=== PATIENT | female | born 1980 | race Caucasian/White ===

== ENCOUNTER 2019-05-14 15:23 | Emergency (ER) | payer BC, OTHER, SELFPAY ==
[2019-05-14 15:27] VITALS: BP 133/97; PULSE 80; RESP 14; TEMP 36.3; O2SAT 99; BMI 25.6
[2019-05-14 15:57] LABS: Add Manual Diff / Slide Review NO; Basophils Absolute Auto 0 /uL (0-100); Basophils Percent Auto 0.7 % (0-2); Eosinophils Absolute Auto 100 /uL (0-450); Eosinophils Percent Auto 1.1 % (2-4); Hematocrit 43.4 % (36-46); Hemoglobin 14.6 g/dL (12.0-16.0); Lymphocytes Absolute Auto 1600 /uL (1100-4500); Lymphocytes Percent Auto 24.7 % (25-40); Mean Corpuscular HGB Conc 33.7 % (30-36); Mean Corpuscular Hemoglobin 30.4 PG (26-34); Mean Corpuscular Volume 90.1 fL (80-100); Monocytes Absolute Auto 400 /uL (0-900); Monocytes Percent Auto 5.8 % (3-14); Neutrophils Absolute Auto 4400 /uL (1500-7000); Neutrophils Percent Auto 67.7 % (50-75); Platelet Count 256 X10^3/uL (150-400); Red Blood Cell Count 4.82 X10^6/uL (4.0-5.2); Red Cell Distribution Width 12.7 % (11.6-14.8); White Blood Cell Count 6.5 X10^3/uL (4.5-11.0)
[2019-05-14 16:04] LABS: Prothrombin Time 11.4 SECONDS (10.1-12.7)
[2019-05-14 16:06] LABS: PTT Partial Thromboplastin Tim 32 SECONDS (26.4-36.2)
[2019-05-14 16:11] LABS: Alanine Aminotransferase 38 IU/L (9-52); Albumin 4.7 g/dL (3.5-5.0); Albumin Globulin Ratio 1.7 (1.0-2.8); Alkaline Phosphatase 76 U/L (38-126); Aspartate Aminotransferase 22 IU/L (14-36); BUN Creatinine Ratio 17.1 (6-22); Bilirubin Total 0.4 mg/dL (0.2-1.3); Blood Urea Nitrogen 12 mg/dL (7-17); Calcium 9.6 mg/dL (8.4-10.2); Carbon Dioxide 26 mmol/L (22-32); Chloride 102 mmol/L (98-107); Estimated Glomerular Filt Rate > 60.0 mL/min (>60); Globulin 2.7 g/dL (1.7-4.1); Glucose 88 mg/dL (70-100); HEMOLYSIS < 15 (0-50); Lipase 81 U/L (23-300); Potassium 3.6 mmol/L (3.4-5.1); Sodium 137 mmol/L (137-145); Total Protein 7.4 g/dL (6.3-8.2)
--- NOTE | 2019-05-14 17:50 | DI.CT.S_ITS ---
PROCEDURE: CT ABDOMEN PELVIS W CON INDICATIONS: ABDOMINAL PAIN, RIGHT LOWER QUADRANT PAIN SINCE LAST TUES. TECHNIQUE: After the administration of intravenous contrast, 5 mm thick sections acquired from the diaphragm to the symphysis. 5 mm coronal and sagittal reformats were acquired. For radiation dose reduction, the following was used: automated exposure control, adjustment of mA and/or kV according to patient size. COMPARISON: None. FINDINGS: Image quality: Excellent. ABDOMEN: Lung bases: Lung bases are clear. Heart size is normal. Solid organs: Liver is normal in size and enhancement. Gallbladder is unremarkable. Biliary system is non dilated. Pancreas enhances normally. Spleen is normal in size and enhancement. Multiple small splenules are noted inferior to the spleen. No adrenal nodules. No hydronephrosis. Multiple sub-centimeters echogenic foci within the kidneys bilaterally are too small to characterize on this exam, but likely represent renal cysts. Peritoneum and bowel: Bowel loops demonstrate normal wall thickness and caliber. No free fluid or air. Normal appendix seen on axial image 59 of series 2. No right lower quadrant inflammatory findings are identified. Nodes and vessels: No retroperitoneal or mesenteric adenopathy by size criteria. Aorta and inferior vena cava are normal in size. Miscellaneous: Small fat-containing umbilical hernia noted. PELVIS: Genitourinary: Bladder wall thickness is normal. Miscellaneous: Uterus is present. There is a 3.0 cm right adnexal cyst. Bones: No suspicious bony lesions. No vertebral body compression fractures. IMPRESSION: 1. Normal appendix identified. No CT evidence of acute appendicitis. 2. 3.0 cm simple-attenuation right adnexal cyst. Dictated by: Atif Owens M.D. on 05/14/2019 at 20:04 Approved by: Atif Owens M.D. on 05/14/2019 at 20:11
--- NOTE | 2019-05-14 18:06 | DI.US.S_ITS ---
PROCEDURE: US PELVIC LIMITED INDICATIONS: RLQ Pain TECHNIQUE: Real-time transabdominal scanning was performed of the pelvic organs, with image documentation. COMPARISON: None. FINDINGS: Uterus: Uterus measures 6.9 x 2.9 cm. Multiple nabothian cysts are identified. Endometrial thickness measures 0.7 cm. There are punctate calcifications at the endometrial and uterine junction. Ovaries: Right ovary measures 4.9 x 4.0 x 3.8 cm. There is a 3.4 x 3.4 x 3.4 cm hypoechoic complex cyst with internal echogenic focus in the right ovary. Left ovary measures 3.6 x 2.2 x 2.3 cm Other: No free pelvic fluid. Limited scanning through the kidneys shows no hydronephrosis. The appendix cannot be identified by ultrasound this exam. Appendicitis cannot be excluded by this exam. IMPRESSION: 1. 3.4 cm complex cyst within the right ovary (possibly hemorrhagic), with right ovarian enlargement to a maximal diameter of 4.9 cm. Large cysts can predispose the ovary to ovarian torsion. Clinical correlation recommended. Consider followup pelvic ultrasound if there is continued clinical concern. 2. The appendix cannot be identified by this ultrasound exam; appendicitis cannot be excluded by this exam. Findings discussed with referring provider BRITTANY Graham by telephone by Dr. Owens at 7:20 PM on 05/14/2019. Dictated by: Atif Owens M.D. on 05/14/2019 at 19:16 Approved by: Atif Owens M.D. on 05/14/2019 at 19:25
[2019-05-14] MEDS: ONDANSETRON 4 MG/2 ML INJ IV (19:08)
[2019-05-14] MEDS: SODIUM CHLORIDE 0.9% 1,000 ML 1000 ML IV (19:08)
[2019-05-14 19:14] VITALS: BP 127/83; PULSE 80; RESP 18; TEMP 36.7; O2SAT 97
[2019-05-14] MEDS: MORPHINE 2 MG/ML INJ IV (20:31)
--- NOTE | 2019-05-14 20:44 | ED.ABDPAIN ---
HPI - Abdominal Pain <BRITTANY Menchaca-BC - Last Filed: 05/14/19 22:05> General Chief Complaint: Abdominal Pain Stated Complaint: abdominal pain Time Seen by Provider: 05/14/19 17:43 Source: patient Mode of arrival: ambulatory Limitations: no limitations History of Present Illness HPI narrative: The patient is a 38-year-old female not smoker with history of PCOS who presents with a chief complaint of right lower quadrant pain. She states has been going on for the past several days, has gotten worse. She denies any overt fevers, but complains of chills. She states the pain is worse with bowel movement and urination. She denies nausea vomiting or diarrhea. She has not taken anything at home to feel better. She does endorse a history of diverticulitis, but this does not feel like that. She states she has tried some naturopathic medications, without relief. She states she has no problem eating and drinking. She denies any dysuria urgency or frequency. She states that she has had her left to remove due to an ectopic . She denies any possibility of at this point time. She denies any dysuria urgency or frequency. Related Data Home Medications Medication Instructions Recorded Confirmed lamotrigine 200 mg PO DAILY 05/14/19 05/14/19 lurasidone [Latuda] 80 mg PO BEDTIME 05/14/19 Previous Rx's Medication Instructions Recorded hydrocodone-acetaminophen [[place]] 1 tab PO Q4-6H PRN #10 tab 05/14/19 ondansetron 4 mg PO Q6H PRN #20 tab 05/14/19 Allergies Allergy/AdvReac Type Severity Reaction Status Date / Time narcotic Allergy Uncoded 05/14/19 15:27 Review of Systems <COOPER MenchacaBC - Last Filed: 05/14/19 22:05> Review of Systems GENERAL: Denies chills, fatigue, malaise, fever, sweats. HEENT: Denies sinus pain, ear pain, sore throat, difficulty swallowing, dizziness. RESPIRATORY: Denies dyspnea, cough, wheezing, hemoptysis, sputum. CARDIOVASCULAR: Denies chest pain, palpitations, orthopnea, edema, GASTROINTESTINAL: See HPI : See HPI MUSCULOSKELETAL: denies weakness, joint pain, or bony pain SKIN: Denies rash, skin lesions, or other NEUROLOGIC: Denies weakness, headache, numbness, change in speech, confusion, seizures, incoordination. PSYCHIATRIC: No concerning psychosocial issues. 12 point review of systems is negative except for those stated above PFSH <PANDA Menchaca - Last Filed: 05/14/19 22:05> Medical History (Updated 05/14/19 @ 21:40 by PANDA Menchaca) History of ectopic (Acute) PCOS (polycystic ovarian syndrome) (Acute) Surgical History (Updated 05/14/19 @ 20:46 by PANDA Menchaca) History of gynecologic surgery (Acute) Social History Smoking Status: Unknown if ever smoked Social History Smoking Status: Unknown if ever smoked Exam <PANDA Menchaca - Last Filed: 05/14/19 22:05> Narrative Exam Narrative: GENERAL: This is a well-nourished, well-developed patient, no acute distress HEAD: Atraumatic. Normocephalic. No temporal or scalp tenderness. EYES: Pupils equal round and reactive. Extraocular motions intact. No scleral icterus. No injection or drainage. ENT: Nose without bleeding, purulent drainage or septal hematoma. Throat without erythema, tonsillar hypertrophy or exudate. Uvula midline. Airway patent. NECK: Trachea midline. No JVD or lymphadenopathy. Supple, nontender, no meningeal signs. CARDIOVASCULAR: Regular rate and rhythm without murmurs, gallops, or rubs. RESPIRATORY: Clear to auscultation. Breath sounds equal bilaterally. No wheezes, rales, or rhonchi. No cough. No increased respiratory effort. No accessory muscle use. GASTROINTESTINAL: Abdomen soft, nondistended. No hepato-splenomegaly, or palpable masses. No guarding. Tenderness to palpation right lower quadrant but no guarding. EXTREMITIES: No clubbing, cyanosis, or edema. No joint tenderness, effusion, or edema noted. BACK: Nontender without deformity or crepitance. No flank tenderness. NEURO: AOx3. SKIN: No rash or erythema. Initial Vital Signs Initial Vital Signs: Vital Signs Temperature 97.4 F L 05/14/19 15:27 Pulse Rate 80 05/14/19 15:27 Respiratory Rate 14 05/14/19 15:27 Blood Pressure 133/97 H 05/14/19 15:27 Pulse Oximetry 99 05/14/19 15:27 <Mk Veras MD - Last Filed: 05/15/19 06:26> Initial Vital Signs Initial Vital Signs: Vital Signs Temperature 97.4 F L 05/14/19 15:27 Pulse Rate 80 05/14/19 15:27 Respiratory Rate 14 05/14/19 15:27 Blood Pressure 133/97 H 05/14/19 15:27 Pulse Oximetry 99 05/14/19 15:27 Course <BRITTANY Menchaca- - Last Filed: 05/14/19 22:05> Course Narrative: I discussed at length with the patient the possibility of ovarian torsion, explained that it would place fertility at risk. She declined a pelvic exam. Agreed to allow me to speak with OBGYN. Orders Ordered: Discontinued Medications Hydrocodone Bitart/Acetaminophen (Vicodin Prepack) 1 bottle MISC SEEINSTR ONE Stop: 05/14/19 21:38 Last Admin: 05/14/19 21:38 Dose: 1 bottle Sodium Chloride (Normal Saline 0.9%) 1,000 mls @ 1,000 mls/hr IV BOLUS ONE Stop: 05/14/19 19:36 Last Infusion: 05/14/19 21:22 Dose: 0 mls/hr Admin: 05/14/19 19:08 Dose: 1,000 mls/hr Morphine Sulfate (Morphine) 2 mg IV NOW ONE Stop: 05/14/19 18:38 Last Admin: 05/14/19 20:31 Dose: 2 mg Ondansetron HCl (Zofran) 4 mg IV NOW ONE Stop: 05/14/19 18:38 Last Admin: 05/14/19 19:08 Dose: 4 mg Ondansetron HCl (Zofran Odt Prepack) 1 bottle MISC SEEINSTR ONE Stop: 05/14/19 21:38 Last Admin: 05/14/19 21:39 Dose: 1 bottle Vital Signs - 8 hr 05/14/19 15:27 05/14/19 19:14 05/14/19 21:29 Temperature 97.4 F L 98.1 F Pulse Rate 80 80 80 Respiratory Rate 14 18 18 Blood Pressure 133/97 H Blood Pressure [Right Arm] 127/83 132/95 H Pulse Oximetry 99 97 98 <Mk Veras MD - Last Filed: 05/15/19 06:26> Orders Ordered: Discontinued Medications Hydrocodone Bitart/Acetaminophen (Vicodin Prepack) 1 bottle MISC SEEINSTR ONE Stop: 05/14/19 21:38 Last Admin: 05/14/19 21:38 Dose: 1 bottle Sodium Chloride (Normal Saline 0.9%) 1,000 mls @ 1,000 mls/hr IV BOLUS ONE Stop: 05/14/19 19:36 Last Infusion: 05/14/19 21:22 Dose: 0 mls/hr Admin: 05/14/19 19:08 Dose: 1,000 mls/hr Morphine Sulfate (Morphine) 2 mg IV NOW ONE Stop: 05/14/19 18:38 Last Admin: 05/14/19 20:31 Dose: 2 mg Ondansetron HCl (Zofran) 4 mg IV NOW ONE Stop: 05/14/19 18:38 Last Admin: 05/14/19 19:08 Dose: 4 mg Ondansetron HCl (Zofran Odt Prepack) 1 bottle MISC SEEINSTR ONE Stop: 05/14/19 21:38 Last Admin: 05/14/19 21:39 Dose: 1 bottle Vital Signs - 8 hr 05/14/19 15:27 05/14/19 19:14 05/14/19 21:29 Temperature 97.4 F L 98.1 F Pulse Rate 80 80 80 Respiratory Rate 14 18 18 Blood Pressure 133/97 H Blood Pressure [Right Arm] 127/83 132/95 H Pulse Oximetry 99 97 98 MDM - Abdominal Pain <PANDA Menchaca - Last Filed: 05/14/19 22:05> Lab Data Result diagrams: 05/14/19 15:45 05/14/19 15:45 Lab Results 05/14/19 05/14/19 05/14/19 Range/Units 15:45 15:45 15:45 WBC 6.5 (4.5-11.0) X10^3/uL RBC 4.82 (4.0-5.2) X10^6/uL Hgb 14.6 (12.0-16.0) g/dL Hct 43.4 (36-46) % MCV 90.1 (80-100) fL MCH 30.4 (26-34) PG MCHC 33.7 (30-36) % RDW 12.7 (11.6-14.8) % Plt Count 256 (150-400) X10^3/uL Neut % (Auto) 67.7 (50-75) % Lymph % (Auto) 24.7 L (25-40) % [place] % (Auto) 5.8 (3-14) % Eos % (Auto) 1.1 L (2-4) % Baso % (Auto) 0.7 (0-2) % Neut # (Auto) 4400 (9387-0829) /uL Lymph # (Auto) 1600 (7623-2021) /uL [place] # (Auto) 400 (0-900) /uL Eos # (Auto) 100 (0-450) /uL Baso # (Auto) 0 (0-100) /uL PT 11.4 (10.1-12.7) SECONDS INR 1.0 (0.9-1.3) APTT 32 (26.4-36.2) SECONDS Sodium 137 (137-145) mmol/L Potassium 3.6 (3.4-5.1) mmol/L Chloride 102 (98-107) mmol/L Carbon Dioxide 26 (22-32) mmol/L BUN 12 (7-17) mg/dL Creatinine 0.70 (0.52-1.04) mg/dL Estimated GFR > 60.0 (>60) mL/min BUN/Creatinine Ratio 17.1 (6-22) Glucose 88 (70-100) mg/dL Calcium 9.6 (8.4-10.2) mg/dL Total Bilirubin 0.4 (0.2-1.3) mg/dL AST 22 (14-36) IU/L ALT 38 (9-52) IU/L Alkaline Phosphatase 76 (38-126) U/L Total Protein 7.4 (6.3-8.2) g/dL Albumin 4.7 (3.5-5.0) g/dL Globulin 2.7 (1.7-4.1) g/dL Albumin/Globulin Ratio 1.7 (1.0-2.8) Lipase 81 (23-300) U/L Point of care testing: Point of Care Testing Test Results Negative Urine Dip Bedside Urine Glucose Negative Bedside Urine Bilirubin - Negative Bedside Urine Ketone - Negative Urine Specific Grahn 1.015 Bedside Urine Occult Blood - Negative Bedside Urine pH 7.0 Bedside Urine Protein - Negative Bedside Urine Urobilinogen - Negative Bedside Urine Nitrite - Negative Bedside Urine Leukocytes +/- 15 Esterase Imaging Data Pelvic ultrasound: Radiologist's impression: [address] [address] Ultrasound Report Signed Patient: Sanjuanita Pierre#: [id number] : 1980Acct:[id number] Age/Sex: 38 / FDate of Service: 05/14/19 Loc: ED Accession Number: [id number] Procedure: US pelvic limited Ordering Provider: Megan Graham- PROCEDURE: US PELVIC LIMITED INDICATIONS: RLQ Pain TECHNIQUE: Real-time transabdominal scanning was performed of the pelvic organs, with image documentation. COMPARISON: None. FINDINGS: Uterus: Uterus measures 6.9 x 2.9 cm. Multiple nabothian cysts are identified. Endometrial thickness measures 0.7 cm. There are punctate calcifications at the endometrial and uterine junction. Ovaries: Right ovary measures 4.9 x 4.0 x 3.8 cm. There is a 3.4 x 3.4 x 3.4 cm hypoechoic complex cyst with internal echogenic focus in the right ovary. Left ovary measures 3.6 x 2.2 x 2.3 cm Other: No free pelvic fluid. Limited scanning through the kidneys shows no hydronephrosis. The appendix cannot be identified by ultrasound this exam. Appendicitis cannot be excluded by this exam. IMPRESSION: 1. 3.4 cm complex cyst within the right ovary (possibly hemorrhagic), with right ovarian enlargement to a maximal diameter of 4.9 cm. Large cysts can predispose the ovary to ovarian torsion. Clinical correlation recommended. Consider followup pelvic ultrasound if there is continued clinical concern. 2. The appendix cannot be identified by this ultrasound exam; appendicitis cannot be excluded by this exam. Findings discussed with referring provider BRITTANY Graham by telephone by Dr. Owens at 7:20 PM on 05/14/2019. Dictated by: Atif Owens M.D. on 05/14/2019 at 19:16 Approved by: Atif Owens M.D. on 05/14/2019 at 19:25 CT scan - abdomen: Radiologist's impression: Estrella Pierre 38 F [address] [address] [address] Scan Report Signed Patient: Sanjuanita Pierre#: [id number] : 1980Acct:[id number] Age/Sex: 38 / FDate of Service: 05/14/19 Loc: Accession Number: [id number] Procedure: CT abdomen pelvis w con Ordering Provider: Megan Graham [facility]- PROCEDURE: CT ABDOMEN PELVIS W CON INDICATIONS: ABDOMINAL PAIN, RIGHT LOWER QUADRANT PAIN SINCE LAST TU. TECHNIQUE: After the administration of intravenous contrast, 5 mm thick sections acquired from the diaphragm to the symphysis. 5 mm coronal and sagittal reformats were acquired. For radiation dose reduction, the following was used: automated exposure control, adjustment of mA and/or kV according to patient size. COMPARISON: None. FINDINGS: Image quality: Excellent. ABDOMEN: Lung bases: Lung bases are clear. Heart size is normal. Solid organs: Liver is normal in size and enhancement. Gallbladder is unremarkable. Biliary system is non dilated. Pancreas enhances normally. Spleen is normal in size and enhancement. Multiple small splenules are noted inferior to the spleen. No adrenal nodules. No hydronephrosis. Multiple sub-centimeters echogenic foci within the kidneys bilaterally are too small to characterize on this exam, but likely represent renal cysts. Peritoneum and bowel: Bowel loops demonstrate normal wall thickness and caliber. No free fluid or air. Normal appendix seen on axial image 59 of series 2. No right lower quadrant inflammatory findings are identified. Nodes and vessels: No retroperitoneal or mesenteric adenopathy by size criteria. Aorta and inferior vena cava are normal in size. Miscellaneous: Small fat-containing umbilical hernia noted. PELVIS: Genitourinary: Bladder wall thickness is normal. Miscellaneous: Uterus is present. There is a 3.0 cm right adnexal cyst. Bones: No suspicious bony lesions. No vertebral body compression fractures. IMPRESSION: 1. Normal appendix identified. No CT evidence of acute appendicitis. 2. 3.0 cm simple-attenuation right adnexal cyst. Dictated by: Atif Owens M.D. on 05/14/2019 at 20:04 Approved by: Atif Owens M.D. on 05/14/2019 at 20:11 [facility] Narrative Medical decision making narrative: The patient is a 38-year-old female who presents with right lower quadrant pain. She does not have an elevated white blood cell count which is reassuring. She has negative in clean urine. However given the radiologist for concern about inability to rule out ovarian torsion, I spoke with Dr. Villela who states that the appearance is of a hemorrhagic cyst. The patient declined a pelvic exam in the ER. I discussed at length pain control, as well as PCP follow-up. Discussed that the patient should come back to the emergency department for any acute concerns such as inability keep down fluids. Patient again declined pelvic exam. States understanding of return precautions as well as follow-up. Patient was given prescription for [place] as well as Zofran. No questions or concerns upon discharge. <Mk Veras MD - Last Filed: 05/15/19 06:26> Lab Data Lab Results 05/14/19 05/14/19 05/14/19 Range/Units 15:45 15:45 15:45 WBC 6.5 (4.5-11.0) X10^3/uL RBC 4.82 (4.0-5.2) X10^6/uL Hgb 14.6 (12.0-16.0) g/dL Hct 43.4 (36-46) % MCV 90.1 (80-100) fL MCH 30.4 (26-34) PG MCHC 33.7 (30-36) % RDW 12.7 (11.6-14.8) % Plt Count 256 (150-400) X10^3/uL Neut % (Auto) 67.7 (50-75) % Lymph % (Auto) 24.7 L (25-40) % [place] % (Auto) 5.8 (3-14) % Eos % (Auto) 1.1 L (2-4) % Baso % (Auto) 0.7 (0-2) % Neut # (Auto) 4400 (6010-3725) /uL Lymph # (Auto) 1600 (3393-7784) /uL [place] # (Auto) 400 (0-900) /uL Eos # (Auto) 100 (0-450) /uL Baso # (Auto) 0 (0-100) /uL PT 11.4 (10.1-12.7) SECONDS INR 1.0 (0.9-1.3) APTT 32 (26.4-36.2) SECONDS Sodium 137 (137-145) mmol/L Potassium 3.6 (3.4-5.1) mmol/L Chloride 102 (98-107) mmol/L Carbon Dioxide 26 (22-32) mmol/L BUN 12 (7-17) mg/dL Creatinine 0.70 (0.52-1.04) mg/dL Estimated GFR > 60.0 (>60) mL/min BUN/Creatinine Ratio 17.1 (6-22) Glucose 88 (70-100) mg/dL Calcium 9.6 (8.4-10.2) mg/dL Total Bilirubin 0.4 (0.2-1.3) mg/dL AST 22 (14-36) IU/L ALT 38 (9-52) IU/L Alkaline Phosphatase 76 (38-126) U/L Total Protein 7.4 (6.3-8.2) g/dL Albumin 4.7 (3.5-5.0) g/dL Globulin 2.7 (1.7-4.1) g/dL Albumin/Globulin Ratio 1.7 (1.0-2.8) Lipase 81 (23-300) U/L Point of care testing: Point of Care Testing Test Results Negative Urine Dip Bedside Urine Glucose Negative Bedside Urine Bilirubin - Negative Bedside Urine Ketone - Negative Urine Specific Grahn 1.015 Bedside Urine Occult Blood - Negative Bedside Urine pH 7.0 Bedside Urine Protein - Negative Bedside Urine Urobilinogen - Negative Bedside Urine Nitrite - Negative Bedside Urine Leukocytes +/- 15 Esterase Discharge Plan Departure Patient Disposition: Home Clinical Impression: Ovarian cyst Qualifiers: Laterality: right Qualified Code(s): N83.201 - Unspecified ovarian cyst, right side Discharge Date/Time: 05/14/19 21:44 Interventions: ED Discharge Assessment Last Done: 05/14/19 21:44 Instructions: DI for Ovarian Cyst Activity Restrictions/Additional Instructions: Your imaging reveals an ovarian cyst. Please follow up with your primary care provider. Please be aware that a large ovary can predispose you for torsion, so monitor for worsening of pain. Please come back to the ER for any acute concerns. I have given the contact information for [facility] health resources. You can also follow up with an OBGYN of her choosing. Today I spoke with Dr. Villela about you Prescriptions: New hydrocodone-acetaminophen [[place]] 5-325 mg tablet 1 tab PO Q4-6H PRN (Reason: pain) Qty: 10 RF: 0 ondansetron 4 mg tablet,disintegrating 4 mg PO Q6H PRN (Reason: nausea and vomiting) Qty: 20 RF: 0 No Action lamotrigine 200 mg tablet 200 mg PO DAILY RF: 0 Latuda 40 mg tablet 80 mg PO BEDTIME RF: 0 Referrals: [facility] [Outside] Shagufta Villela MD [Physician] - <Mk Veras MD - Last Filed: 05/15/19 06:26> Cosign ED Attending Solature Attestation: I was present in the ER at the time this patient's care. I was available for consultation or to see the patient directly if needed. I agree with evaluation, the assessment and treatment plan.
--- NOTE | 2019-05-14 20:48 | ED_ITS ---
HPI - Abdominal Pain <BRITTANY Menchaca-BC - Last Filed: 05/14/19 22:05> General Chief Complaint: Abdominal Pain Stated Complaint: abdominal pain Time Seen by Provider: 05/14/19 17:43 Source: patient Mode of arrival: ambulatory Limitations: no limitations History of Present Illness HPI narrative: The patient is a 38-year-old female not smoker with history of PCOS who presents with a chief complaint of right lower quadrant pain. She states has been going on for the past several days, has gotten worse. She denies any overt fevers, but complains of chills. She states the pain is worse with bowel movement and urination. She denies nausea vomiting or diarrhea. She has not taken anything at home to feel better. She does endorse a history of diverticulitis, but this does not feel like that. She states she has tried some naturopathic medications, without relief. She states she has no problem eating and drinking. She denies any dysuria urgency or frequency. She states that she has had her left to remove due to an ectopic . She denies any possibility of at this point time. She denies any dysuria urgency or frequency. Related Data Home Medications Medication Instructions Recorded Confirmed lamotrigine 200 mg PO DAILY 05/14/19 05/14/19 lurasidone [Latuda] 80 mg PO BEDTIME 05/14/19 Previous Rx's Medication Instructions Recorded hydrocodone-acetaminophen [Evans] 1 tab PO Q4-6H PRN #10 tab 05/14/19 ondansetron 4 mg PO Q6H PRN #20 tab 05/14/19 Allergies Allergy/AdvReac Type Severity Reaction Status Date / Time narcotic Allergy Uncoded 05/14/19 15:27 Review of Systems <COOPER MenchacaBC - Last Filed: 05/14/19 22:05> Review of Systems GENERAL: Denies chills, fatigue, malaise, fever, sweats. HEENT: Denies sinus pain, ear pain, sore throat, difficulty swallowing, dizziness. RESPIRATORY: Denies dyspnea, cough, wheezing, hemoptysis, sputum. CARDIOVASCULAR: Denies chest pain, palpitations, orthopnea, edema, GASTROINTESTINAL: See HPI : See HPI MUSCULOSKELETAL: denies weakness, joint pain, or bony pain SKIN: Denies rash, skin lesions, or other NEUROLOGIC: Denies weakness, headache, numbness, change in speech, confusion, seizures, incoordination. PSYCHIATRIC: No concerning psychosocial issues. 12 point review of systems is negative except for those stated above PFSH <PANDA Menchaca - Last Filed: 05/14/19 22:05> Medical History (Updated 05/14/19 @ 21:40 by PANDA Menchaca) History of ectopic (Acute) PCOS (polycystic ovarian syndrome) (Acute) Surgical History (Updated 05/14/19 @ 20:46 by PANDA Menchaca) History of gynecologic surgery (Acute) Social History Smoking Status: Unknown if ever smoked Social History Smoking Status: Unknown if ever smoked Exam <PANDA Menchaca - Last Filed: 05/14/19 22:05> Narrative Exam Narrative: GENERAL: This is a well-nourished, well-developed patient, no acute distress HEAD: Atraumatic. Normocephalic. No temporal or scalp tenderness. EYES: Pupils equal round and reactive. Extraocular motions intact. No scleral icterus. No injection or drainage. ENT: Nose without bleeding, purulent drainage or septal hematoma. Throat without erythema, tonsillar hypertrophy or exudate. Uvula midline. Airway patent. NECK: Trachea midline. No JVD or lymphadenopathy. Supple, nontender, no meningeal signs. CARDIOVASCULAR: Regular rate and rhythm without murmurs, gallops, or rubs. RESPIRATORY: Clear to auscultation. Breath sounds equal bilaterally. No wheezes, rales, or rhonchi. No cough. No increased respiratory effort. No accessory muscle use. GASTROINTESTINAL: Abdomen soft, nondistended. No hepato-splenomegaly, or palpable masses. No guarding. Tenderness to palpation right lower quadrant but no guarding. EXTREMITIES: No clubbing, cyanosis, or edema. No joint tenderness, effusion, or edema noted. BACK: Nontender without deformity or crepitance. No flank tenderness. NEURO: AOx3. SKIN: No rash or erythema. Initial Vital Signs Initial Vital Signs: Vital Signs Temperature 97.4 F L 05/14/19 15:27 Pulse Rate 80 05/14/19 15:27 Respiratory Rate 14 05/14/19 15:27 Blood Pressure 133/97 H 05/14/19 15:27 Pulse Oximetry 99 05/14/19 15:27 <Mk Veras MD - Last Filed: 05/15/19 06:26> Initial Vital Signs Initial Vital Signs: Vital Signs Temperature 97.4 F L 05/14/19 15:27 Pulse Rate 80 05/14/19 15:27 Respiratory Rate 14 05/14/19 15:27 Blood Pressure 133/97 H 05/14/19 15:27 Pulse Oximetry 99 05/14/19 15:27 Course <BRITTANY Menchaca- - Last Filed: 05/14/19 22:05> Course Narrative: I discussed at length with the patient the possibility of ovarian torsion, explained that it would place fertility at risk. She declined a pelvic exam. Agreed to allow me to speak with OBGYN. Orders Ordered: Discontinued Medications Hydrocodone Bitart/Acetaminophen (Vicodin Prepack) 1 bottle MISC SEEINSTR ONE Stop: 05/14/19 21:38 Last Admin: 05/14/19 21:38 Dose: 1 bottle Sodium Chloride (Normal Saline 0.9%) 1,000 mls @ 1,000 mls/hr IV BOLUS ONE Stop: 05/14/19 19:36 Last Infusion: 05/14/19 21:22 Dose: 0 mls/hr Admin: 05/14/19 19:08 Dose: 1,000 mls/hr Morphine Sulfate (Morphine) 2 mg IV NOW ONE Stop: 05/14/19 18:38 Last Admin: 05/14/19 20:31 Dose: 2 mg Ondansetron HCl (Zofran) 4 mg IV NOW ONE Stop: 05/14/19 18:38 Last Admin: 05/14/19 19:08 Dose: 4 mg Ondansetron HCl (Zofran Odt Prepack) 1 bottle MISC SEEINSTR ONE Stop: 05/14/19 21:38 Last Admin: 05/14/19 21:39 Dose: 1 bottle Vital Signs - 8 hr 05/14/19 15:27 05/14/19 19:14 05/14/19 21:29 Temperature 97.4 F L 98.1 F Pulse Rate 80 80 80 Respiratory Rate 14 18 18 Blood Pressure 133/97 H Blood Pressure [Right Arm] 127/83 132/95 H Pulse Oximetry 99 97 98 <Mk Veras MD - Last Filed: 05/15/19 06:26> Orders Ordered: Discontinued Medications Hydrocodone Bitart/Acetaminophen (Vicodin Prepack) 1 bottle MISC SEEINSTR ONE Stop: 05/14/19 21:38 Last Admin: 05/14/19 21:38 Dose: 1 bottle Sodium Chloride (Normal Saline 0.9%) 1,000 mls @ 1,000 mls/hr IV BOLUS ONE Stop: 05/14/19 19:36 Last Infusion: 05/14/19 21:22 Dose: 0 mls/hr Admin: 05/14/19 19:08 Dose: 1,000 mls/hr Morphine Sulfate (Morphine) 2 mg IV NOW ONE Stop: 05/14/19 18:38 Last Admin: 05/14/19 20:31 Dose: 2 mg Ondansetron HCl (Zofran) 4 mg IV NOW ONE Stop: 05/14/19 18:38 Last Admin: 05/14/19 19:08 Dose: 4 mg Ondansetron HCl (Zofran Odt Prepack) 1 bottle MISC SEEINSTR ONE Stop: 05/14/19 21:38 Last Admin: 05/14/19 21:39 Dose: 1 bottle Vital Signs - 8 hr 05/14/19 15:27 05/14/19 19:14 05/14/19 21:29 Temperature 97.4 F L 98.1 F Pulse Rate 80 80 80 Respiratory Rate 14 18 18 Blood Pressure 133/97 H Blood Pressure [Right Arm] 127/83 132/95 H Pulse Oximetry 99 97 98 MDM - Abdominal Pain <PANDA Menchaca - Last Filed: 05/14/19 22:05> Lab Data Result diagrams: 05/14/19 15:45 05/14/19 15:45 Lab Results 05/14/19 05/14/19 05/14/19 Range/Units 15:45 15:45 15:45 WBC 6.5 (4.5-11.0) X10^3/uL RBC 4.82 (4.0-5.2) X10^6/uL Hgb 14.6 (12.0-16.0) g/dL Hct 43.4 (36-46) % MCV 90.1 (80-100) fL MCH 30.4 (26-34) PG MCHC 33.7 (30-36) % RDW 12.7 (11.6-14.8) % Plt Count 256 (150-400) X10^3/uL Neut % (Auto) 67.7 (50-75) % Lymph % (Auto) 24.7 L (25-40) % Wilkin % (Auto) 5.8 (3-14) % Eos % (Auto) 1.1 L (2-4) % Baso % (Auto) 0.7 (0-2) % Neut # (Auto) 4400 (1947-2943) /uL Lymph # (Auto) 1600 (3553-7947) /uL Wilkin # (Auto) 400 (0-900) /uL Eos # (Auto) 100 (0-450) /uL Baso # (Auto) 0 (0-100) /uL PT 11.4 (10.1-12.7) SECONDS INR 1.0 (0.9-1.3) APTT 32 (26.4-36.2) SECONDS Sodium 137 (137-145) mmol/L Potassium 3.6 (3.4-5.1) mmol/L Chloride 102 (98-107) mmol/L Carbon Dioxide 26 (22-32) mmol/L BUN 12 (7-17) mg/dL Creatinine 0.70 (0.52-1.04) mg/dL Estimated GFR > 60.0 (>60) mL/min BUN/Creatinine Ratio 17.1 (6-22) Glucose 88 (70-100) mg/dL Calcium 9.6 (8.4-10.2) mg/dL Total Bilirubin 0.4 (0.2-1.3) mg/dL AST 22 (14-36) IU/L ALT 38 (9-52) IU/L Alkaline Phosphatase 76 (38-126) U/L Total Protein 7.4 (6.3-8.2) g/dL Albumin 4.7 (3.5-5.0) g/dL Globulin 2.7 (1.7-4.1) g/dL Albumin/Globulin Ratio 1.7 (1.0-2.8) Lipase 81 (23-300) U/L Point of care testing: Point of Care Testing Test Results Negative Urine Dip Bedside Urine Glucose Negative Bedside Urine Bilirubin - Negative Bedside Urine Ketone - Negative Urine Specific Clear 1.015 Bedside Urine Occult Blood - Negative Bedside Urine pH 7.0 Bedside Urine Protein - Negative Bedside Urine Urobilinogen - Negative Bedside Urine Nitrite - Negative Bedside Urine Leukocytes +/- 15 Esterase Imaging Data Pelvic ultrasound: Radiologist's impression: [address] [address] Ultrasound Report Signed Patient: Sanjuanita Pierre#: [id number] : 1980Acct:[id number] Age/Sex: 38 / FDate of Service: 05/14/19 Loc: ED Accession Number: [id number] Procedure: US pelvic limited Ordering Provider: Megan Graham- PROCEDURE: US PELVIC LIMITED INDICATIONS: RLQ Pain TECHNIQUE: Real-time transabdominal scanning was performed of the pelvic organs, with image documentation. COMPARISON: None. FINDINGS: Uterus: Uterus measures 6.9 x 2.9 cm. Multiple nabothian cysts are identified. Endometrial thickness measures 0.7 cm. There are punctate calcifications at the endometrial and uterine junction. Ovaries: Right ovary measures 4.9 x 4.0 x 3.8 cm. There is a 3.4 x 3.4 x 3.4 cm hypoechoic complex cyst with internal echogenic focus in the right ovary. Left ovary measures 3.6 x 2.2 x 2.3 cm Other: No free pelvic fluid. Limited scanning through the kidneys shows no hydronephrosis. The appendix cannot be identified by ultrasound this exam. Appendicitis cannot be excluded by this exam. IMPRESSION: 1. 3.4 cm complex cyst within the right ovary (possibly hemorrhagic), with right ovarian enlargement to a maximal diameter of 4.9 cm. Large cysts can predispose the ovary to ovarian torsion. Clinical correlation recommended. Consider followup pelvic ultrasound if there is continued clinical concern. 2. The appendix cannot be identified by this ultrasound exam; appendicitis cannot be excluded by this exam. Findings discussed with referring provider BRITTANY Graham by telephone by Dr. Owens at 7:20 PM on 05/14/2019. Dictated by: Atif Owens M.D. on 05/14/2019 at 19:16 Approved by: Atif Owens M.D. on 05/14/2019 at 19:25 CT scan - abdomen: Radiologist's impression: Estrella Pierre 38 F [address] [address] [address] Scan Report Signed Patient: Sanjuanita Pierre#: [id number] : 1980Acct:[id number] Age/Sex: 38 / FDate of Service: 05/14/19 Loc: Accession Number: [id number] Procedure: CT abdomen pelvis w con Ordering Provider: Megan Graham [facility]- PROCEDURE: CT ABDOMEN PELVIS W CON INDICATIONS: ABDOMINAL PAIN, RIGHT LOWER QUADRANT PAIN SINCE LAST TU. TECHNIQUE: After the administration of intravenous contrast, 5 mm thick sections acquired from the diaphragm to the symphysis. 5 mm coronal and sagittal reformats were acquired. For radiation dose reduction, the following was used: automated exposure control, adjustment of mA and/or kV according to patient size. COMPARISON: None. FINDINGS: Image quality: Excellent. ABDOMEN: Lung bases: Lung bases are clear. Heart size is normal. Solid organs: Liver is normal in size and enhancement. Gallbladder is unremarkable. Biliary system is non dilated. Pancreas enhances normally. Spleen is normal in size and enhancement. Multiple small splenules are noted inferior to the spleen. No adrenal nodules. No hydronephrosis. Multiple sub-centimeters echogenic foci within the kidneys bilaterally are too small to characterize on this exam, but likely represent renal cysts. Peritoneum and bowel: Bowel loops demonstrate normal wall thickness and caliber. No free fluid or air. Normal appendix seen on axial image 59 of series 2. No right lower quadrant inflammatory findings are identified. Nodes and vessels: No retroperitoneal or mesenteric adenopathy by size criteria. Aorta and inferior vena cava are normal in size. Miscellaneous: Small fat-containing umbilical hernia noted. PELVIS: Genitourinary: Bladder wall thickness is normal. Miscellaneous: Uterus is present. There is a 3.0 cm right adnexal cyst. Bones: No suspicious bony lesions. No vertebral body compression fractures. IMPRESSION: 1. Normal appendix identified. No CT evidence of acute appendicitis. 2. 3.0 cm simple-attenuation right adnexal cyst. Dictated by: Atif Owens M.D. on 05/14/2019 at 20:04 Approved by: Atif Owens M.D. on 05/14/2019 at 20:11 [facility] Narrative Medical decision making narrative: The patient is a 38-year-old female who presents with right lower quadrant pain. She does not have an elevated white blood cell count which is reassuring. She has negative in clean urine. However given the radiologist for concern about inability to rule out ovarian torsion, I spoke with Dr. Villela who states that the appearance is of a hemorrhagic cyst. The patient declined a pelvic exam in the ER. I discussed at length pain control, as well as PCP follow-up. Discussed that the patient sh ould come back to the emergency department for any acute concerns such as inability keep down fluids. Patient again declined pelvic exam. States understanding of return precautions as well as follow-up. Patient was given prescription for Evans as well as Zofran. No questions or concerns upon dis charge. <Mk Veras MD - Last Filed: 05/15/19 06:26> Lab Data Lab Results 05/14/19 05/14/19 05/14/19 Range/Units 15:45 15:45 15:45 WBC 6.5 (4.5-11.0) X10^3/uL RBC 4.82 (4.0-5.2) X10^6/uL Hgb 14.6 (12.0-16.0) g/dL Hct 43.4 (36-46) % MCV 90.1 (80-100) fL MCH 30.4 (26-34) PG MCHC 33.7 (30-36) % RDW 12.7 (11.6-14.8) % Plt Count 256 (150-400) X10^3/uL Neut % (Auto) 67.7 (50-75) % Lymph % (Auto) 24.7 L (25-40) % Wilkin % (Auto) 5.8 (3-14) % Eos % (Auto) 1.1 L (2-4) % Baso % (Auto) 0.7 (0-2) % Neut # (Auto) 4400 (0436-4134) /uL Lymph # (Auto) 1600 (7087-8759) /uL Wilkin # (Auto) 400 (0-900) /uL Eos # (Auto) 100 (0-450) /uL Baso # (Auto) 0 (0-100) /uL PT 11.4 (10.1-12.7) SECONDS INR 1.0 (0.9-1.3) APTT 32 (26.4-36.2) SECONDS Sodium 137 (137-145) mmol/L Potassium 3.6 (3.4-5.1) mmol/L Chloride 102 (98-107) mmol/L Carbon Dioxide 26 (22-32) mmol/L BUN 12 (7-17) mg/dL Creatinine 0.70 (0.52-1.04) mg/dL Estimated GFR > 60.0 (>60) mL/min BUN/Creatinine Ratio 17.1 (6-22) Glucose 88 (70-100) mg/dL Calcium 9.6 (8.4-10.2) mg/dL Total Bilirubin 0.4 (0.2-1.3) mg/dL AST 22 (14-36) IU/L ALT 38 (9-52) IU/L Alkaline Phosphatase 76 (38-126) U/L Total Protein 7.4 (6.3-8.2) g/dL Albumin 4.7 (3.5-5.0) g/dL Globulin 2.7 (1.7-4.1) g/dL Albumin/Globulin Ratio 1.7 (1.0-2.8) Lipase 81 (23-300) U/L Point of care testing: Point of Care Testing Test Results Negative Urine Dip Bedside Urine Glucose Negative Bedside Urine Bilirubin - Negative Bedside Urine Ketone - Negative Urine Specific Clear 1.015 Bedside Urine Occult Blood - Negative Bedside Urine pH 7.0 Bedside Urine Protein - Negative Bedside Urine Urobilinogen - Negative Bedside Urine Nitrite - Negative Bedside Urine Leukocytes +/- 15 Esterase Discharge Plan Departure Patient Disposition: Home Clinical Impression: Ovarian cyst Qualifiers: Laterality: right Qualified Code(s): N83.201 - Unspecified ovarian cyst, right side Discharge Date/Time: 05/14/19 21:44 Interventions: ED Discharge Assessment Last Done: 05/14/19 21:44 Instructions: DI for Ovarian Cyst Activity Restrictions/Additional Instructions: Your imaging reveals an ovarian cyst. Please follow up with your primary care provider. Please be aware that a large ovary can predispose you for torsion, so monitor for worsening of pain. Please come back to the ER for any acute concerns. I have given the contact information for [facility] resources. You can also follow up with an OBGYN of her choosing. Today I spoke with Dr. Villela about you Prescriptions: New hydrocodone-acetaminophen [Evans] 5-325 mg tablet 1 tab PO Q4-6H PRN (Reason: pain) Qty: 10 RF: 0 ondansetron 4 mg tablet,disintegrating 4 mg PO Q6H PRN (Reason: nausea and vomiting) Qty: 20 RF: 0 No Action lamotrigine 200 mg tablet 200 mg PO DAILY RF: 0 Latuda 40 mg tablet 80 mg PO BEDTIME RF: 0 Referrals: [facility] [Outside] Shagufta Villela MD [Physician] - <Mk Veras MD - Last Filed: 05/15/19 06:26> Cosign ED Attending Solature Attestation: I was present in the ER at the time this patient's care. I was available for consultation or to see the patient directly if needed. I agree with evaluation, the assessment and treatment plan.
[2019-05-14 21:29] VITALS: BP 132/95; PULSE 80; RESP 18; O2SAT 98
[2019-05-14] MEDS: HYDROCODONE/ACET 5/325 PREPACK 1 BOTTLE MISC (21:38)
[2019-05-14] MEDS: ONDANSETRON 4 MG ODT PREPACK 1 BOTTLE MISC (21:39)
== END 2019-05-14 21:44 | disposition home or self-care (01) ==
PROVIDERS: Emergency Medicine; Emergency Provider Nurse Practitioner Family
DX: N83.201 Unspecified ovarian cyst, right side (principal)
CPT/HCPCS: 74177; 76830; 76857; 80053; 81003; 81025; 83690; 85025; 85610; 85730; 93005; 96361; 96374; 96375; 99283; 99284; J2270; J2405; Q9967

== ENCOUNTER 2019-08-09 14:15 | Emergency (ER) | payer BC, OTHER, SELFPAY ==
[2019-08-09 14:20] VITALS: BP 129/81; PULSE 93; RESP 14; TEMP 36.5; O2SAT 99; BMI 24.4
--- NOTE | 2019-08-09 15:25 | ED.HA ---
HPI - Headache <VINICIO Milner - Last Filed: 08/09/19 20:59> General Chief Complaint: Headache Stated Complaint: migraine/nausea/lt ear and face tingling x5 days Time Seen by Provider: 08/09/19 14:37 Mode of arrival: Ambulatory Limitations: no limitations History of Present Illness HPI Narrative: 38-year-old female with a history of migraine, presents emergency department today complaining of a migraine for the past 5 days with gradual onset. She states it starts on the left side of her head and radiates to the right side she states this is throbbing pressure that is a 8/10 that is worse with noise and movement. She reports nausea, photophobia, phonophobia, and occasional facial tingling that has resolved. She denies any vomiting, fevers, nasal congestion, chest pain, shortness of breath, diarrhea, recent illness, facial droop, memory issues, slurred speech, or other concerning symptoms. She states she used to have migraines in the past. However, the past few years she has a limit them by limiting food allergies. When she gets a migraine she takes a Benadryl and usually subsides. However, this was not the case. She states she has been taking 800 mg of ibuprofen and 2 Excedrin pills for the past 5 days. Related Data Home Medications Medication Instructions Recorded Confirmed vitamin#30 30 mg iron-10 1 cap PO DAILY 07/16/19 08/09/19 mg iron-folic acid 1 mg-omg3 capsule Ca carb-Ca gluc-Mg ox-Mg gluco 1 tab PO DAILY 08/09/19 08/09/19 [Calcium Magnesium] Previous Rx's Medication Instructions Recorded lamotrigine 200 mg tablet 200 mg PO DAILY #30 tab 07/16/19 lurasidone 40 mg tablet 80 mg PO BEDTIME #60 tab 07/16/19 propranolol 10 mg tablet 30 mg PO ONCE PRN #90 tab 07/16/19 ondansetron 4 mg PO Q6H PRN #10 tab 08/09/19 Allergies Allergy/AdvReac Type Severity Reaction Status Date / Time narcotic AdvReac Unknown Uncoded 08/09/19 14:25 Review of Systems <VINICIO Milner - Last Filed: 08/09/19 20:59> Review of Systems Narrative: REVIEW OF SYSTEMS: GENERAL: Denies fever or chills. HENT: Patient reports migraine, see HPI. EYES: No loss of vision, double vision, eye pain, or irritation. CARDIOVASCULAR: No chest pain or syncope. RESPIRATORY: No shortness of breath or cough. GASTROINTESTINAL: No nausea, vomiting, diarrhea, or constipation. GENITOURINARY: No flank pain or dysuria. MUSCULOSKELETAL: No pain, weakness, or deformities. INTEGUMENTARY: No rash, lesions, or pruritus. NEURO: No numbness, tingling, memory loss, or confusion. PSYCH: No behavior or mood changes. Patient History <VINICIO Milner - Last Filed: 08/09/19 20:59> Medical/Surgical History Medical History Antipsychotic-induced akathisia (Acute) Anxiety (Acute) Bipolar disorder, in full remission, most recent episode manic (Acute) Borderline personality disorder (Acute) History of ectopic (Acute) PCOS (polycystic ovarian syndrome) (Acute) Surgical History History of gynecologic surgery (Acute) Social History Smoking Status: Never smoker Family/Social History Social History Smoking Status: Never smoker alcohol intake frequency: holidays/special occasions only Substance Use Type: does not use Exam <VINICIO Milner - Last Filed: 08/09/19 20:59> Initial Vital Signs Initial Vital Signs: Vital Signs Temperature 97.7 F 08/09/19 14:20 Pulse Rate 93 H 08/09/19 14:20 Respiratory Rate 14 08/09/19 14:20 Blood Pressure 129/81 08/09/19 14:20 Pulse Oximetry 99 08/09/19 14:20 PHYSICAL EXAMINATION: GENERAL: Well groomed, alert, and cooperative. Answers questions promptly and appropriately. Vital signs noted. HENT: Normocephalic, atraumatic. Ear canals patent. Oropharynx without erythema. EYES: PERRLA, EOMIs, Conjunctiva pink, sclera white, no periorbital swelling. Patient appears to have photophobia. CHEST: Normal to inspection and without deformities. CARDIOVASCULAR: S1 and S2 sounds normal. Regular rate and rhythm, no murmurs, clicks, or bruits. No pedal edema. RESPIRATORY: Normal respiratory rate, trachea midline, airway patent. No stridor, nasal flaring or accessory muscle use. Lungs are clear in all goodman without wheeze, rhonchi, or crackles. GASTROINTESTINAL: Bowel sounds normoactive. Abdomen is soft and non-tender. No organomegaly. MUSCULOSKELETAL: Normal gait and coordination. Equal tone and mass bilaterally. EXTREMITIES: CMS intact. Moves all extremities. SKIN: Warm, dry, soft, appropriate color for ethnicity. No lesions, rashes, or wounds. NEURO: Alert and Oriented X 3. Good coordination. No ataxia, or sensory deficits, or cognitive issues. PSYCH: Appropriate affect and mood. <Arie Wade DO - Last Filed: 08/10/19 07:07> Initial Vital Signs Initial Vital Signs: Vital Signs Temperature 97.7 F 08/09/19 14:20 Pulse Rate 93 H 08/09/19 14:20 Respiratory Rate 14 08/09/19 14:20 Blood Pressure 129/81 08/09/19 14:20 Pulse Oximetry 99 08/09/19 14:20 Course <VINICIO Milner - Last Filed: 08/09/19 20:59> Course Course Narrative: Patient was given fluids, Benadryl, Reglan, and Toradol in the emergency department stay. She states her headache significantly decreased to a 4/10. She was given Tylenol additionally and states her headache further improved to a 2/10. Patient denied wanting any prescriptions for Reglan as she felt like it made her jittery. She was given a prescription for Zofran for nausea. Orders Ordered: Discontinued Medications Acetaminophen (Tylenol) 975 mg PO NOW ONE Stop: 08/09/19 16:36 Last Admin: 08/09/19 16:56 Dose: 975 mg Documented by: CPRUITT Diphenhydramine HCl (Benadryl) 25 mg IV NOW ONE Stop: 08/09/19 15:22 Last Admin: 08/09/19 16:03 Dose: 25 mg Documented by: CPRUITT Sodium Chloride (Normal Saline 0.9%) 1,000 mls @ 1,000 mls/hr IV BOLUS ONE Stop: 08/09/19 16:20 Last Infusion: 08/09/19 16:57 Dose: 0 mls/hr Documented by: Admin: 08/09/19 16:04 Dose: 1,000 mls/hr Documented by: CHUCKIET Ketorolac Tromethamine (Toradol) 30 mg IV NOW ONE Stop: 08/09/19 15:22 Last Admin: 08/09/19 16:04 Dose: 30 mg Documented by: CHUCKIET Metoclopramide HCl (Reglan) 10 mg IV NOW ONE Stop: 08/09/19 15:22 Last Admin: 08/09/19 16:04 Dose: 10 mg Documented by: MY Consultations Consultation #1: Patient staffed with Dr. Wade. Vital Signs Vital signs: Vital Signs - 8 hr 08/09/19 14:20 08/09/19 15:46 08/09/19 16:27 Temperature 97.7 F Pulse Rate 93 H 86 92 H Respiratory Rate 14 16 Blood Pressure 129/81 Blood Pressure [Left Arm] 124/85 Pulse Oximetry 99 99 97 08/09/19 17:22 Temperature Pulse Rate 74 Respiratory Rate 12 Blood Pressure 128/84 Blood Pressure [Left Arm] Pulse Oximetry 98 <Arie Wade, - Last Filed: 08/10/19 07:07> Orders Ordered: Discontinued Medications Acetaminophen (Tylenol) 975 mg PO NOW ONE Stop: 08/09/19 16:36 Last Admin: 08/09/19 16:56 Dose: 975 mg Documented by: MY Diphenhydramine HCl (Benadryl) 25 mg IV NOW ONE Stop: 08/09/19 15:22 Last Admin: 08/09/19 16:03 Dose: 25 mg Documented by: MY Sodium Chloride (Normal Saline 0.9%) 1,000 mls @ 1,000 mls/hr IV BOLUS ONE Stop: 08/09/19 16:20 Last Infusion: 08/09/19 16:57 Dose: 0 mls/hr Documented by: Admin: 08/09/19 16:04 Dose: 1,000 mls/hr Documented by: CHUCKIET Ketorolac Tromethamine (Toradol) 30 mg IV NOW ONE Stop: 08/09/19 15:22 Last Admin: 08/09/19 16:04 Dose: 30 mg Documented by: CHUCKIET Metoclopramide HCl (Reglan) 10 mg IV NOW ONE Stop: 08/09/19 15:22 Last Admin: 08/09/19 16:04 Dose: 10 mg Documented by: CPRUITT Vital Signs Vital signs: Vital Signs - 8 hr 08/09/19 14:20 08/09/19 15:46 08/09/19 16:27 Temperature 97.7 F Pulse Rate 93 H 86 92 H Respiratory Rate 14 16 Blood Pressure 129/81 Blood Pressure [Left Arm] 124/85 Pulse Oximetry 99 99 97 08/09/19 17:22 Temperature Pulse Rate 74 Respiratory Rate 12 Blood Pressure 128/84 Blood Pressure [Left Arm] Pulse Oximetry 98 MDM - Headache <VINICIO Milner - Last Filed: 08/09/19 20:59> Medical Records Attestation: I reviewed the patient's medical records. Lab Data Attestation: I reviewed the patient's lab results. MDM Narrative Medical decision making narrative: History and examination consistent with migraine (patient reports history of migraine, pain decreased after administration of medication, complains of photophobia and phonophobia with headache). Less likely cranial hemorrhage or brain tumor due to gradual onset of symptoms, resolution of symptoms with administration of medication and normal neuro examination. Strict return precautions given and follow-up instructions discussed. Discharge Plan Departure Patient Disposition: Home Clinical Impression: Migraine Qualifiers: Migraine type: unspecified Status migrainosus presence: without status migrainosus Intractability: not intractable Qualified Code(s): G43.909 - Migraine, unspecified, not intractable, without status migrainosus Discharge Date/Time: 08/09/19 17:25 Instructions: DI for Migraine, DI for Headache Activity Restrictions/Additional Instructions: Thank you for entrusting me with your care today. As discussed, I prescribed a medication called ondansetron for nausea. You may use ondansetron, Benadryl, and ibuprofen as needed for headaches. Follow up with her primary care provider in the next week for re-evaluation and discussion of further headache treatment. Return emergency department if you develop chest pain, shortness of breath, uncontrollable vomiting, facial droop, worsening or concerning symptoms. Prescriptions: New ondansetron 4 mg tablet,disintegrating 4 mg PO Q6H PRN (Reason: nausea and vomiting) Qty: 10 RF: 0 No Action PNV #[id number] 30 mg iron-10 mg iron-1 mg capsule 1 cap PO DAILY RF: 0 lamotrigine 200 mg tablet 200 mg PO DAILY Qty: 30 RF: 5 lurasidone 40 mg tablet 80 mg PO BEDTIME Qty: 60 RF: 5 propranolol 10 mg tablet 30 mg PO ONCE PRN (Reason: akathisia) Qty: 90 RF: 5 Calcium Magnesium 500 mg calcium -250 mg Tablet 1 tab PO DAILY RF: 0 <Arie Wade DO - Last Filed: 08/10/19 07:07> Sign Out Provider Sign Out Attestation: I was available for consultation during this patient's emergency department visit. This chart is signed by myself for administrative purposes only. I did not have direct contact with this patient during this visit. They were seen independently by the APC.
[2019-08-09 15:46] VITALS: BP 124/85; PULSE 86; RESP 16; O2SAT 99
[2019-08-09] MEDS: diphenhydrAMINE 50 MG/ML VIAL 25 MG IV (16:03)
[2019-08-09] MEDS: KETOROLAC 60 MG/2 ML VIAL 30 MG IV (16:04)
[2019-08-09] MEDS: METOCLOPRAMIDE 10 MG/2 ML INJ IV (16:04)
[2019-08-09] MEDS: SODIUM CHLORIDE 0.9% 1,000 ML 1000 ML IV (16:04)
[2019-08-09 16:27] VITALS: PULSE 92; O2SAT 97
[2019-08-09] MEDS: ACETAMINOPHEN 325 MG TABLET 975 MG PO (16:56)
[2019-08-09 17:22] VITALS: BP 128/84; PULSE 74; RESP 12; O2SAT 98
== END 2019-08-09 17:25 | disposition home or self-care (01) ==
PROVIDERS: Emergency Provider Nurse Practitioner
DX: G43.909 Migraine, unspecified, not intractable, without status migrainosus (principal)
CPT/HCPCS: 36415; 96361; 96374; 96375; 99283; 99284; J1200; J1885; J2765

== ENCOUNTER → 2022-05-30 12:27 | Outpatient (CLI) | payer BC, MEDICARE, SELFPAY ==
--- NOTE | 2022-05-30 | DI.RAD.S_ITS ---
PROCEDURE: XR LUMBAR SPINE 2-3V INDICATIONS: Dislocation of sacroiliac and sacrococcygeal joint, initial TECHNIQUE: 2 views of the lumbar spine were acquired. COMPARISON: [facility], CT, CT ABDOMEN PELVIS W CON, 05/14/2019, 18:33. [facility], CR, XR THORACIC SPINE 2V, 05/30/2022, 12:44. [facility], CR, XR CERVICAL SPINE 2V OR 3V, 05/30/2022, 12:44. [facility], CR, XR HIP W PEL IF DONE SHAMIKA 3TO4V, 05/30/2022, 12:44. FINDINGS: Bones: 5 [id number] vertebrae are present. There is normal bony alignment. No vertebral body compression fractures. No suspicious bony lesions. The disc heights are well preserved. Soft tissues: Overlying bowel gas pattern is normal. No suspicious soft tissue calcifications. IMPRESSION: No significant lumbar spine plain film abnormality can be seen. If it would be helpful for clinical management decision making, please consider a dedicated, scheduled lumbar spine MRI for further evaluation (assuming that there is no contraindication). Dictated by: Mina Monterroso M.D. on 05/30/2022 at 13:23 Approved by: Mina Monterroso M.D. on 05/30/2022 at 13:24
--- NOTE | 2022-05-30 | DI.RAD.S_ITS ---
PROCEDURE: XR HIP W PEL IF DONE SHAMIKA MIN 4V INDICATIONS: Dislocation of sacroiliac and sacrococcygeal joint, initial TECHNIQUE: AP pelvis with lateral view(s) of both hip(s). COMPARISON: [facility], CT, CT ABDOMEN PELVIS W CON, 05/14/2019, 18:33. [facility], CR, XR LUMBAR SPINE 2-3V, 05/30/2022, 12:44. [facility], CR, XR THORACIC SPINE 2V, 05/30/2022, 12:44. [facility], CR, XR CERVICAL SPINE 2V OR 3V, 05/30/2022, 12:44. FINDINGS: Bones: No fractures or dislocations. Pelvic ring appears intact. No suspicious bony lesions. There is mild superior joint space narrowing seen of both hips, with associated remodeling changes with subchondral sclerosis and osteophyte formation. Soft tissues: The visualized bowel gas pattern is normal. No suspicious soft tissue calcifications. Pelvic phleboliths are incidentally noted. IMPRESSION: Mild loss of both hip joint spaces can be seen. If it would be helpful for clinical management decision making, please consider a dedicated hip MRI for further evaluation (assuming that there is no contraindication). If there is strong clinical concern for a labral abnormality, this should be performed according to the arthrogram protocol. Dictated by: Mina Monterroso M.D. on 05/30/2022 at 13:24 Approved by: Mina Monterroso M.D. on 05/30/2022 at 13:25
--- NOTE | 2022-05-30 | DI.RAD.S_ITS ---
PROCEDURE: XR CERVICAL SPINE 2V OR 3V INDICATIONS: pain TECHNIQUE: 3 view(s) of the cervical spine were acquired. COMPARISON: [facility], CR, XR HIP W PEL IF DONE SHAMIKA 3TO4V, 05/30/2022, 12:44. [facility], CR, XR THORACIC SPINE 2V, 05/30/2022, 12:44. [facility], CR, XR LUMBAR SPINE 2-3V, 05/30/2022, 12:44. FINDINGS: Bones: No fractures or dislocations to the T1 level. The lateral masses of C1 appear intact on the odontoid view. No suspicious bony lesions. There is reversal of the normal cervical lordosis, with the apex at the C4-C5 level. No focal AP alignment abnormality is seen. The disc heights are well preserved. Soft tissues: No prevertebral soft tissue swelling. The visualized lung apices are unremarkable. IMPRESSION: Reversal of the normal cervical lordosis is seen. This is commonly observed in patients with muscular spasm. If it would be helpful for clinical management decision making, please consider a dedicated cervical spine MRI for further evaluation (assuming that there is no contraindication). Dictated by: Mina Monterroso M.D. on 05/30/2022 at 13:21 Approved by: Mina Monterroso M.D. on 05/30/2022 at 13:22
--- NOTE | 2022-05-30 | DI.RAD.S_ITS ---
PROCEDURE: XR THORACIC SPINE 2V INDICATIONS: pain TECHNIQUE: 2 views of the thoracic spine were acquired. COMPARISON: [facility], CR, XR HIP W PEL IF DONE SHAMIKA 3TO4V, 05/30/2022, 12:44. [facility], CR, XR CERVICAL SPINE 2V OR 3V, 05/30/2022, 12:44. [facility], CR, XR LUMBAR SPINE 2-3V, 05/30/2022, 12:44. FINDINGS: Bones: No fractures or dislocations. No suspicious bony lesions. 12 pairs of ribs are noted, and appear intact where visualized. Soft tissues: No paravertebral stripe thickening. IMPRESSION: Thoracic spine plain films within normal limits. Dictated by: Mina Monterroso M.D. on 05/30/2022 at 13:22 Approved by: Mina Monterroso M.D. on 05/30/2022 at 13:23
== END ==
PROVIDERS: PCP Family Medicine; Referring Provider Chiropractor; Visit Provider Chiropractor
DX: S13.1 Subluxation and dislocation of cervical vertebrae (principal); S23.110A Subluxation of T1/T2 thoracic vertebra, initial encounter; S33.140A Subluxation of L4/L5 lumbar vertebra, initial encounter; S33.2XXA Dislocation of sacroiliac and sacrococcygeal joint, initial encounter
CPT/HCPCS: 72040; 72070; 72100; 73522

== ENCOUNTER → 2022-07-09 09:51 | Outpatient (CLI) | payer BC, MEDICARE, SELFPAY ==
[2022-07-09 11:48] LABS: Alanine Aminotransferase 22 IU/L (<35); Albumin 4.4 g/dL (3.5-5.0); Albumin Globulin Ratio 1.6 (1.0-2.8); Alkaline Phosphatase 55 U/L (38-126); Aspartate Aminotransferase 24 IU/L (14-36); BUN Creatinine Ratio 13.7 (6-22); Bilirubin Total 0.3 mg/dL (0.2-1.3); Blood Urea Nitrogen 10 mg/dL (7-17); Calcium 9.7 mg/dL (8.4-10.2); Carbon Dioxide 26 mmol/L (22-32); Chloride 106 mmol/L (98-107); Estimated Glomerular Filt Rate > 60 mL/min (>60); Globulin 2.8 g/dL (1.7-4.1); Glucose 102 mg/dL (70-100); HEMOLYSIS < 15 (0-50); Potassium 4.5 mmol/L (3.4-5.1); Sodium 141 mmol/L (137-145); Total Protein 7.2 g/dL (6.3-8.2)
[2022-07-09 11:59] LABS: Lithium 0.8 mmol/L (0.6-1.2)
[2022-07-10 03:49] LABS: Valproic Acid (Depakene) Total 82 ug/mL (50-100)
[2022-07-11 10:35] LABS: Lamotrigine Lamictal 10.9 ug/mL (2.0-20.0)
== END ==
PROVIDERS: PCP Family Medicine; Referring Provider Psychiatry & Neurology Psychiatry; Visit Provider Psychiatry & Neurology Psychiatry
DX: F31.63 Bipolar disorder, current episode mixed, severe, without psychotic features (principal); F31.74 Bipolar disorder, in full remission, most recent episode manic; Z79.899 Other long term (current) drug therapy
CPT/HCPCS: 36415; 80053; 80164; 80175; 80178

== ENCOUNTER → 2022-10-12 12:12 | Outpatient (CLI) | payer BC, MEDICARE, SELFPAY ==
[2022-10-12 14:20] LABS: Progesterone, Total 1.97 ng/mL
[2022-10-15 19:04] LABS: Estrogen 85 pg/mL (.)
== END ==
PROVIDERS: PCP Family Medicine; Referring Provider Psychiatry & Neurology Psychiatry; Visit Provider Psychiatry & Neurology Psychiatry
DX: E89.40 Asymptomatic postprocedural ovarian failure (principal); F32.81 Premenstrual dysphoric disorder
CPT/HCPCS: 36415; 82627; 82672; 84144

== ENCOUNTER → 2023-01-15 08:16 | Outpatient (CLI) | payer BC, MEDICARE, MEDICAID, SELFPAY ==
--- NOTE | 2023-01-15 08:21 | DI.RAD.S_ITS ---
PROCEDURE: [place] HIP INJECTION MR/CT RT INDICATIONS: hip pain TECHNIQUE: The indications, alternatives, benefits, risks, and complications of the procedure were explained to the patient. Written informed consent was obtained and placed in the chart. The hip was examined fluoroscopically with the legs fixed in slight internal rotation, and a site for needle placement chosen for entry into the hip joint from an anterior approach. Care was taken to locate the common femoral artery and vein beforehand. The skin was prepped and draped in a sterile fashion, and 1% Lidocaine infiltrated from skin down to joint capsule. A spinal needle was inserted into the joint, and a small amount of iodinated contrast media injected to confirm intra-articular placement of the needle tip. This was followed by approximately 10 mL dilute solution of a gadolinium containing MR contrast agent. The needle was removed and a dressing was applied. The patient was given postprocedural instructions and sent to the MR suite for imaging. COMPARISON: [facility], , MR HIP RT W CON, 01/15/2023, 8:53. FINDINGS: A single fluoroscopic spot image demonstrates intra-articular location of injected iodinated contrast. IMPRESSION: Successful fluoroscopically guided administration of dilute Gadolinium solution into the hip joint for MR arthrogram. Dictated by: Loy Odonnell M.D. on 01/15/2023 at 11:06 Approved by: Loy Odonnell M.D. on 01/15/2023 at 11:06
--- NOTE | 2023-01-15 08:22 | DI.MRI.S_ITS ---
PROCEDURE: MR HIP RT W CON INDICATIONS: hip pain TECHNIQUE: After the administration of 10 mL of dilute intra-articular Gadolinium contrast, coronal STIR of the bony pelvis; coronal and oblique axial T1 spin echo with fat saturation, axial T2 fast spin echo with fat saturation, sagittal T1 spin echo with and without fat saturation of the involved hip. COMPARISON: [facility], CR, XR PELVIS WITH BILATERAL LATERAL HIPS, 08/09/2022, 8:28. [facility], , [place] HIP INJECTION MR/CT RT, 01/15/2023, 8:41. FINDINGS: Image quality: Excellent. Bones and joints: Bone marrow of the pelvic ring and proximal femurs show normal signal throughout. No intraosseous lesions or fractures. No avascular necrosis of the femoral heads. There is disc desiccation in the lumbar spine. Tendons and ligaments: The gluteus medius and minimus tendons demonstrate mild tendinosis. The proximal iliotibial band appears intact. The iliopsoas tendon appears intact, without adjacent bursal fluid collections. The origin of the hamstring tendon is intact at the ischial tuberosity. The direct and indirect heads of the rectus femoris muscle origin appear intact. Labrum and cartilage: The focus of fluid signal intensity is seen at the anterosuperior labral chondrolabral junction with smooth margins, favored to represent a normal chondrolabral sulcus rather them a labral tear. The labrum is otherwise intact. Mild partial-thickness surface cartilage irregularity of the superior aspect of the right hip. Marginal osteophytes are seen at the lateral acetabulum. There is normal morphology of the femoral head and the acetabulum. Soft tissues: Visualized muscles demonstrate normal bulk and internal signal. Quadratus femoris muscle demonstrates no internal edema to suggest ischiofemoral impingement. The proximal sciatic neurovascular bundle appears intact. The included portions of the pelvis demonstrate no acute abnormality. IMPRESSION: 1. Linear hyperintense signal at the anterosuperior labrum is favored to represent a normal-variant chondrolabral sulcus rather than a nondisplaced tear. The labrum is otherwise intact. 2. Mild grade 2 chondromalacia at the superior aspect of the right hip with lateral acetabular osteophyte formation. 3. Mild distal gluteus medius and minimus tendinosis. 4. Degenerative changes are noted at the lower lumbar spine. Approved by: Richar Cole M.D. on 01/15/2023 at 9:51
== END ==
PROVIDERS: PCP Family Medicine; Referring Provider Orthopaedic Surgery; Visit Provider Orthopaedic Surgery
DX: M94.251 Chondromalacia, right hip (principal); M25.551 Pain in right hip; M25.552 Pain in left hip; M47.816 Spondylosis without myelopathy or radiculopathy, lumbar region
CPT/HCPCS: 27093; 73722; 77002

== ENCOUNTER → 2023-01-18 07:35 | Outpatient (CLI) | payer BC, MEDICARE, MEDICAID, SELFPAY ==
--- NOTE | 2023-01-19 03:24 | DI.NM.S_ITS ---
DATE OF SERVICE: 01/18/2023 PROCEDURE: Exercise stress test. INDICATIONS: Chest pain. CARDIAC STRESS: The patient underwent exercise stress test under the supervision of an attending staff using the standard Carl protocol. She walked on Carl protocol for 6 minutes and 38 seconds, achieved maximum heart rate 168, which was 95% of target heart rate. Resting blood pressure 120/80 mmHg. Peak blood pressure 170/80 mmHg. Achieved 7 METs of workload and GÉNESIS positive 21%. The patient developed chest tightness which was on a scale of 1 to 10, 2 in intensity, starting at the end of the first stage and increased to 4/10 at maximum exercise. Resolved within 30 seconds post exercise when she lay down. Also felt shortness of breath. No ischemic changes or arrhythmias at that time. CONCLUSION: Exercise stress test is negative for inducible ischemia. Diminished exercise tolerance. GÉNESIS positive 21%. Normal hemodynamic response. The patient developed chest tightness on a scale of 1 to 10, 2 in intensity starting at the end of the first stage and increased to 4/10 at maximum exercise and resolved 30 seconds post exercise when she lay down. At that time no ischemic electrocardiographic changes or significant arrhythmias. Correlate clinically. As far as exercise stress test is concerned, it is a low-risk exercise stress test. If clinical suspicion for CAD high, repeat exercise stress test with imaging modality, like exercise stress echo and also look for alternative etiology of chest pain. PierreEstrella - Jaja/kt doc#: [id number]/job#: [id number] dd: 01/18/2023 17:09:00 dt: 01/19/2023 02:19:00 DICTATING /COPIES TO: Juan Townsend MD COPIES MNE: JUAN;
== END ==
PROVIDERS: PCP Family Medicine; Referring Provider Family Medicine; Visit Provider Family Medicine
DX: R07.9 Chest pain, unspecified (principal)
CPT/HCPCS: 93017

== ENCOUNTER → 2023-02-08 10:44 | Outpatient (CLI) | payer BC, MEDICARE, MEDICAID, SELFPAY ==
--- NOTE | 2023-02-08 | DI.CT.S_ITS ---
PROCEDURE: CT HIP RIGHT WITHOUT CON INDICATIONS: FEMOROACETABULAR IMPINGEMENT RIGHT HIP TECHNIQUE: Noncontrast 3 mm axial sections acquired through the bony pelvis. Additional 3 mm axial sections acquired through the symptomatic hip joint, with coronal and sagittal reformats. COMPARISON: [facility], MR, MR HIP RT W CON, 01/15/2023, 8:53. FINDINGS: Image quality: Excellent. Bones: Mild right hip joint osteoarthritic changes are seen with joint space narrowing and subchondral sclerosis. Prominence of superior anterior right femoral head neck junction is noted with subcortical cystic areas which can be seen associated with CAM type femoral acetabular impingement also noted on previous MR study. No fracture or dislocation. No evidence of avascular necrosis of femoral head. No suspicious bony lesions. Soft tissues: There is no abnormal soft tissue calcifications. No significant right hip joint effusion. No gross intramuscular mass or fluid collection. Visualized portion of pelvis shows no free fluid or free air. IMPRESSION: 1. Mild right hip joint osteoarthritis. No hip fracture or dislocation. No evidence of avascular necrosis. 2. Prominence of superior anterior right femoral head neck junction with subcortical cystic areas which can be seen associated with CAM type femoral acetabular impingement. 3. No gross muscle or soft tissue abnormality is seen in right hemipelvis. Dictated by: Mitch Matias M.D. on 02/08/2023 at 12:36 Approved by: Mitch Matias M.D. on 02/08/2023 at 12:45
== END ==
PROVIDERS: PCP Family Medicine; Referring Provider Orthopaedic Surgery; Visit Provider Orthopaedic Surgery
DX: M25.851 Other specified joint disorders, right hip (principal); M16.11 Unilateral primary osteoarthritis, right hip
CPT/HCPCS: 73700

== ENCOUNTER → 2023-02-09 13:55 | Outpatient (CLI) | payer BC, MEDICARE, MEDICAID, SELFPAY ==
--- NOTE | 2023-03-27 10:23 | PM.PFT.1 ---
Pulmonary Function Test Referral & Results Date Patient Seen: 02/09/23 Results: The spirometry demonstrates an FVC of 2.83 L which is 75% of predicted. The FEV1 was measured at 2.52 L which is 83% of predicted. The FEV1/FVC ratio was 89 which is 108% of predicted. Following the administration of bronchodilator there was no appreciable change. Lung volumes show an SVC of 2.99 L which is 86% of predicted. The diffusing capacity was measured at 21.42 which is 84% of predicted. The maximum voluntary ventilation was probably normal verses minimally reduced Interpretation: This study demonstrates perhaps very mild obstructive lung disease based on reduction FEV1 although FEV1/FVC ratio is preserved and there is no evidence of benefit following bronchodilator administration Patient's lung volumes and diffusing capacity are both probably normal Clinical correlation suggested
== END ==
PROVIDERS: PCP Family Medicine; Referring Provider Family Medicine; Visit Provider Family Medicine
DX: J45.990 Exercise induced bronchospasm (principal)
CPT/HCPCS: 94060; 94726; 94729

== ENCOUNTER 2023-07-31 14:09 | Emergency (ER) | payer BC, MEDICARE, MEDICAID, SELFPAY ==
[2023-07-31 14:23] VITALS: BP 124/82; PULSE 86; RESP 16; TEMP 36.6; O2SAT 100; BMI 27.3
--- NOTE | 2023-07-31 16:10 | ED.HA ---
HPI - Headache General Chief Complaint: Headache Stated Complaint: migraine T-7/meds not working Time Seen by Provider: 07/31/23 16:04 Mode of arrival: Ambulatory History of Present Illness HPI Narrative: Patient is a 42-year-old with a history of migraine headaches. Her current daily meds are Lamictal, Depakote, lithium. Since this headache started 1 week ago, she has taken naratriptan, ibuprofen. She also has a prescription for an injectable migraine medication which she has not used this time because it has not worked very well in the past. She does have a neurologist but has not seen this person in several years. Her headache this time is across the front of her head, she has minimal appetite but has not been vomiting, feels extra sensitive to auditory input, endorses photosensitivity. Her head feels very heavy. She is able to ambulate steadily without vertigo. Related Data Home Medications Medication Instructions Recorded Confirmed calcium carb-Ca gluc 500 mg 1 tab PO DAILY 08/09/19 03/13/23 calcium-magnesium ox-Mg gluc 250 mg tablet (Calcium Magnesium) naratriptan 1 mg tablet 1 mg PO .Q12 PRN 02/10/20 03/13/23 multivitamin 1 tab PO DAILY 12/05/20 03/13/23 Previous Rx's Medication Instructions Recorded lithium carbonate 300 mg 900 mg (3 x 300 mg) PO BEDTIME #90 04/03/23 tablet,extended release tabs lurasidone 40 mg tablet 40 mg PO QPM #30 tabs 05/20/23 divalproex 500 mg tablet,extended 1,000 mg (2 x 500 mg) PO DAILY #60 06/06/23 release 24 hr tabs lamotrigine 100 mg tablet 200 mg (2 x 100 mg) PO DAILY #60 06/06/23 tabs Allergies Allergy/AdvReac Type Severity Reaction Status Date / Time narcotic AdvReac Severe Cycles her Uncoded 03/13/23 14:48 Bipolar Review of Systems Review of Systems ROS Unobtainable: All systems reviewed & are unremarkable except as noted in HPI and below Patient History Medical History Antipsychotic-induced akathisia Anxiety Borderline personality disorder Bipolar disorder, in full remission, most recent episode manic History of ectopic PCOS (polycystic ovarian syndrome) Surgical History History of gynecologic surgery Social History Smoking Status: Never smoker Smoking Status: Never smoker alcohol intake frequency: a few times a month Substance Use Type: does not use Exam Narrative Exam Narrative: GENERAL: 42 year old patient appears stated age. Well-developed patient, in no distress. Wearing sunglasses. NEURO: Alert and oriented x3, mood/affect normal, normal speech, normal cognition. CN's (II-XII) grossly intact. No gross motor deficit, 5/5 strength throughout, no gross sensory loss, normal movement, normal gait. HEAD: Atraumatic. Normocephalic. EYES: Pupils equal round and reactive. Extraocular motions intact. No scleral icterus. No injection or drainage. ENT: Nose without bleeding or purulent drainage. Airway patent. RESPIRATORY: No distress SKIN: No rash or erythema of visible areas Initial Vital Signs Initial Vital Signs: Vital Signs Temperature 97.8 F 07/31/23 14:23 Pulse Rate 86 07/31/23 14:23 Respiratory Rate 16 07/31/23 14:23 Blood Pressure 124/82 07/31/23 14:23 Pulse Oximetry 100 07/31/23 14:23 Oxygen Delivery Method Room Air 07/31/23 14:23 Course Orders Ordered: Discontinued Medications Dexamethasone (Dexamethasone 10 Mg/Ml Vial) 10 mg IV NOW ONE Stop: 07/31/23 17:54 Last Admin: 07/31/23 18:01 Dose: 10 mg Documented By: KATHERINE Diphenhydramine HCl (Diphenhydramine 50 Mg/Ml Vial) 25 mg IV NOW ONE Stop: 07/31/23 16:14 Last Admin: 07/31/23 16:52 Dose: 25 mg Documented By: KATHERINE Sodium Chloride (Normal Saline 0.9%) 1,000 mls @ 1,000 mls/hr IV BOLUS ONE Stop: 07/31/23 17:12 Last Infusion: 07/31/23 17:52 Dose: Infused Documented By: Admin: 07/31/23 16:51 Dose: 1,000 mls/hr Documented By: KATHERINE Acetaminophen (Ofirmev) 1,000 mg in 100 mls @ 400 mls/hr IV NOW ONE Stop: 07/31/23 16:27 Last Infusion: 07/31/23 17:12 Dose: Infused Documented By: Admin: 07/31/23 16:55 Dose: 400 mls/hr Documented By: KATHERINE Ketorolac Tromethamine (Ketorolac 30 Mg/Ml Vial) 30 mg IV NOW ONE Stop: 07/31/23 16:14 Last Admin: 07/31/23 16:53 Dose: 30 mg Documented By: KATHERINE Prochlorperazine (Prochlorperazine 10 Mg/2 Ml Vial) 10 mg IV NOW ONE Stop: 07/31/23 16:14 Last Admin: 07/31/23 16:51 Dose: 10 mg Documented By: KATHERINE Vital Signs Vital signs: Vital Signs - 8 hr 07/31/23 14:23 07/31/23 16:43 07/31/23 18:13 Temperature 97.8 F Pulse Rate 86 79 89 Respiratory Rate 16 Blood Pressure 124/82 123/66 114/71 Pulse Oximetry 100 99 99 Oxygen Delivery Method Room Air Room Air Room Air MDM - Headache MDM Narrative Medical decision making narrative: Multiple etiologies for patient's symptoms considered including, but not limited to: Migraine headache, tension headache, stroke. Patient treated with migraine cocktail with prochlorperazine, Toradol, Tylenol, diphenhydramine and normal saline infusion with relief of her headache. Administered 10 mg IV dexamethasone for prevention of recurrence of headache. Patient will follow up with her neurologist and PCP. Reviewed return precautions. Patient's symptoms improved over duration of stay with above-stated therapies. Findings and discharge diagnosis discussed with patient/family followed by verbalization of understanding Return precautions discussed with patient/family whom verbalize understanding of diagnosis and plan Discharge Plan Departure Patient Disposition: Home Clinical Impression: Migraine Qualifiers: Migraine type: unspecified Status migrainosus presence: with status migrainosus Intractability: intractable Qualified Code(s): G43.911 - Migraine, unspecified, intractable, with status migrainosus Instructions: DI for Migraine Activity Restrictions/Additional Instructions: *You have been diagnosed with migraine headache. We gave you a dose of IV dexamethasone, a steroid, which will help increase the chance that your headache does not recur over the next couple of days. Please follow-up with your neurologist and/or PCP regarding hormone level testing if you desire. *What to do: *Please continue to take your regular medications as directed. [ ] New medication prescriptions sent to your pharmacy: [ ] [ ] New medication written as a paper prescription [x] No new medications given *Please follow up with your primary care provider in 2-3 days, call for an appointment. Let them know you were seen in the Emergency Department and that we ask that you be seen in follow up. We will electronically transmit a record of today's note if your PCP is in our system *If you do not have a primary care provider please contact the [facility] Resource line at [phone]. They will ask some questions about your medical history and help get you set up with a doctor in the community. *Return to Emergency Department if you should have any new, worsening or concerning symptoms, such as [fever greater than 101 F, shaking chills, worsening pain, persistent vomiting or other concerning symptoms]. Prescriptions: No Action lamotrigine 100 mg tablet 200 mg PO DAILY Qty: 60 5RF divalproex 500 mg tablet extended release 24 hr 1,000 mg PO DAILY Qty: 60 5RF naratriptan 1 mg tablet 1 mg PO .Q12 PRN multivitamin Tablet 1 tab PO DAILY lithium carbonate 300 mg tablet extended release 900 mg PO BEDTIME Qty: 90 2RF lurasidone 40 mg tablet 40 mg PO QPM Qty: 30 2RF Rx Instructions: must administer with food (at least 350 calories) Calcium Magnesium 500 mg calcium -250 mg Tablet 1 tab PO DAILY Referrals: Rich Clark MD [Primary Care Provider] - Stand Alone Forms: Patient Portal/API
[2023-07-31 16:43] VITALS: BP 123/66; PULSE 79; O2SAT 99
[2023-07-31] MEDS: PROCHLORPERAZINE 10 MG/2 ML VIAL IV (16:51)
[2023-07-31] MEDS: SODIUM CHLORIDE 0.9% 1,000 ML 1000 ML IV (16:51)
[2023-07-31] MEDS: diphenhydrAMINE 50 MG/ML VIAL 25 MG IV (16:52)
[2023-07-31] MEDS: KETOROLAC 30 MG/ML VIAL IV (16:53)
[2023-07-31] MEDS: ACETAMINOPHEN IV 1,000 MG/100 ML VIAL 400 MG IV (16:55)
[2023-07-31] MEDS: DEXAMETHASONE 10 MG/ML VIAL IV (18:01)
[2023-07-31 18:13] VITALS: BP 114/71; PULSE 89; O2SAT 99
== END 2023-07-31 18:15 | disposition home or self-care (01) ==
PROVIDERS: Emergency Provider Physician Assistant; PCP Family Medicine
DX: G43.911 Migraine, unspecified, intractable, with status migrainosus (principal)
CPT/HCPCS: 96365; 96375; 99283; 99284; J0131; J0780; J1100; J1200; J1885

== ENCOUNTER → 2023-11-22 10:57 | Outpatient (CLI) | payer BC, MEDICARE, MEDICAID, SELFPAY ==
--- NOTE | 2023-11-22 11:01 | DI.RAD.S_ITS ---
PROCEDURE: [place] HIP INJECTION MR/CT LT INDICATIONS: TEAR OF LEFT ACETABULAR LABRUM TECHNIQUE: The indications, alternatives, benefits, risks, and complications of the procedure were explained to the patient. Written informed consent was obtained and placed in the chart. The hip was examined fluoroscopically with the legs fixed in slight internal rotation, and a site for needle placement chosen for entry into the hip joint from an anterior approach. Care was taken to locate the common femoral artery and vein beforehand. The skin was prepped and draped in a sterile fashion, and 1% Lidocaine infiltrated from skin down to joint capsule. A spinal needle was inserted into the joint, and a small amount of iodinated contrast media injected to confirm intra-articular placement of the needle tip. This was followed by approximately 10 mL dilute solution of a gadolinium containing MR contrast agent. The needle was removed and a dressing was applied. The patient was given postprocedural instructions and sent to the MR suite for imaging. COMPARISON: [facility], , [place] HIP INJECTION MR/CT RT, 01/15/2023, 8:41. FINDINGS: A single fluoroscopic spot image demonstrates intra-articular location of injected iodinated contrast. IMPRESSION: Successful fluoroscopically guided administration of dilute Gadolinium solution into the hip joint for MR arthrogram. Dictated by: Jocy Crabtree M.D. on 11/27/2023 at 11:18 Approved by: Jocy Crabtree M.D. on 11/27/2023 at 11:18
--- NOTE | 2023-11-22 11:03 | DI.MRI.S_ITS ---
PROCEDURE: MR HIP LT W CON INDICATIONS: TEAR OF LEFT ACETABULAR LABRUM TECHNIQUE: After the administration of 10 mL of dilute intra-articular Gadolinium contrast, coronal STIR of the bony pelvis; coronal and oblique axial T1 spin echo with fat saturation, axial T2 fast spin echo with fat saturation, sagittal T1 spin echo with and without fat saturation of the involved hip. COMPARISON: [facility], MR, MR HIP RT W CON, 01/15/2023, 8:53. FINDINGS: Image quality: Excellent. Bones and joints: Asymmetric mild left hip joint osteoarthritic changes are seen with joint space narrowing, subchondral sclerosis and small lateral marginal osteophyte formation. No intraosseous lesions or fractures. No avascular necrosis of the femoral head. The visualized lower lumbar spine appears normally aligned. The ligamental, neck, and labral plicae appear normal where visualized. Tendons and ligaments: Mild distal right gluteus medius and minimus tendinosis is seen. The nearby proximal iliotibial band also appears intact. The iliopsoas tendon appears intact, without adjacent bursal fluid collections or evidence for impingement syndrome. The origin of the hamstring tendon is intact at the ischial tuberosity, as well as the associated sacrotuberous ligament. The straight and reflected heads of the rectus femoris muscle origin appear intact, as well as the conjoint tendon. The ligamentum teres appears intact where visualized. Labrum and cartilage: Thinning of articulating cartilage over left femoral head is seen. There is fraying of superior anterior left hip labrum with T2 hyperintense signal and contrast extension at 1 to 2 o'clock position suggestive of superior anterior labral tear. No paralabral cysts. The alpha angle of the femur is within normal limits at less than 55 degrees. Soft tissues: Visualized muscles demonstrate normal bulk and internal signal. Quadratus femoris muscle demonstrates no internal edema to suggest ischiofemoral impingement. The proximal sciatic neurovascular bundle appears normal adjacent to the hamstring tendons. No free pelvic fluid. Bladder wall thickness is normal. Genitourinary structures and bowel loops appear normal where visualized. IMPRESSION: 1. Finding is suggestive of superior anterior left hip labral tear at 1 to 2 o'clock position. 2. Asymmetric mild left hip joint osteoarthritis. No fracture or dislocation. No evidence of avascular necrosis of femoral head. 3. Distal left gluteus medius and minimus tendinosis. No other muscle or tendon signal abnormalities. Dictated by: Mitch Matias M.D. on 11/22/2023 at 14:54 Approved by: Mitch Matias M.D. on 11/22/2023 at 14:57
[2023-11-22] MEDS: LIDOCAINE 1% 20 ML INJ (11:43)
[2023-11-22] MEDS: SODIUM CHLORIDE 0.9 % 20 ML VIAL IV (11:44)
== END ==
LOC: RAD 11:00
PROVIDERS: PCP Family Medicine; Referring Provider Orthopaedic Surgery; Visit Provider Orthopaedic Surgery
DX: S73.192D Other sprain of left hip, subsequent encounter (principal); M16.12 Unilateral primary osteoarthritis, left hip
CPT/HCPCS: 27093; 73722; 77002

== ENCOUNTER → 2023-12-19 13:41 | Outpatient (CLI) | payer BC, MEDICARE, MEDICAID, SELFPAY ==
[2023-12-19 14:49] LABS: Alanine Aminotransferase 54 IU/L (<35); Albumin 4.8 g/dL (3.5-5.0); Albumin Globulin Ratio 1.8 (1.0-2.8); Alkaline Phosphatase 90 U/L (38-126); Aspartate Aminotransferase 35 IU/L (14-36); Bilirubin Total 0.4 mg/dL (0.2-1.3); Blood Urea Nitrogen 6 mg/dL (7-17); Calcium 9.9 mg/dL (8.4-10.2); Carbon Dioxide 26 mmol/L (22-32); Chloride 103 mmol/L (98-107); Cholesterol 211 mg/dL (140-199); Estimated Glomerular Filt Rate > 60 mL/min (>60); Globulin 2.7 g/dL (1.7-4.1); Glucose 93 mg/dL (70-100); HDL Cholesterol 63 mg/dL (40-60); HEMOLYSIS < 15 (0-50); LDL Cholesterol Calculated 113 mg/dL (<100); Potassium 3.9 mmol/L (3.4-5.1); Sodium 140 mmol/L (137-145); Total Protein 7.5 g/dL (6.3-8.2); Triglycerides 173 mg/dL (35-150)
[2023-12-19 14:50] LABS: Lithium 0.6 mmol/L (0.6-1.2)
[2023-12-19 17:12] LABS: Progesterone, Total 1.11 ng/mL
[2023-12-20 04:41] LABS: Valproic Acid (Depakene) Total 47 ug/mL (50-100)
[2023-12-23 14:16] LABS: Lamotrigine Lamictal 10.3 ug/mL (2.0-20.0)
[2023-12-26 13:11] LABS: Estrogen 67 pg/mL (.)
== END ==
PROVIDERS: PCP Family Medicine; Referring Provider Psychiatry & Neurology Psychiatry; Visit Provider Psychiatry & Neurology Psychiatry
DX: E89.40 Asymptomatic postprocedural ovarian failure (principal); F31.74 Bipolar disorder, in full remission, most recent episode manic; Z79.899 Other long term (current) drug therapy
CPT/HCPCS: 36415; 80053; 80061; 80164; 80175; 80178; 82627; 82672; 84144

== ENCOUNTER → 2024-02-07 09:57 | Outpatient (CLI) | payer BC, MEDICARE, SELFPAY ==
[2024-02-08 05:47] LABS: Valproic Acid (Depakene) Total 41 ug/mL (50-100)
== END ==
PROVIDERS: PCP Family Medicine; Referring Provider Psychiatry & Neurology Psychiatry; Visit Provider Psychiatry & Neurology Psychiatry
DX: Z51.81 Encounter for therapeutic drug level monitoring (principal); F31.63 Bipolar disorder, current episode mixed, severe, without psychotic features
CPT/HCPCS: 36415; 80164

== ENCOUNTER 2024-03-27 13:02 | Emergency (ER) | payer BC, MEDICARE, SELFPAY ==
[2024-03-27 13:06] VITALS: BP 125/86; PULSE 96; RESP 16; TEMP 36.7; O2SAT 99; BMI 25.0
--- NOTE | 2024-03-27 13:55 | ED.EAR ---
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 She has had a cyst postauricular area for awhile. Over the last couple has gotten bigger over the last couple weeks in more erythematous and more painful. She saw her PCP couple days ago who referred her to Dermatology for biopsy and removal. Today it started draining and bleeding and she was told to come to the ED for further evaluation. She has not had any fever chills significant redness. She reports that since it started draining it is less painful and not as full. Related Data Home Medications Medication Instructions Recorded Confirmed calcium carb-Ca gluc 500 mg 1 tab PO DAILY 08/09/19 03/25/24 calcium-magnesium ox-Mg gluc 250 mg tablet (Calcium Magnesium) multivitamin 1 tab PO DAILY 12/05/20 03/25/24 Previous Rx's Medication Instructions Recorded lamotrigine 100 mg tablet 200 mg (2 x 100 mg) PO DAILY #60 12/10/23 tabs lithium carbonate 300 mg 900 mg (3 x 300 mg) PO BEDTIME #90 02/06/24 tablet,extended release tabs divalproex 250 mg tablet,extended 500 mg (2 x 250 mg) PO BEDTIME #60 02/19/24 release 24 hr tabs naratriptan 1 mg tablet See Rx Instructions PO .COMPLEX 03/06/24 #10 tabs Disabled parking permit #1 ea 03/25/24 cephalexin 500 mg capsule 500 mg PO BID 7 days #14 caps 03/27/24 Allergies Allergy/AdvReac Type Severity Reaction Status Date / Time nut - unspecified Allergy Severe Anaphylaxis Verified 03/27/24 13:13 Patient History Medical History Migraine 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), with abnormal movement Antipsychotic-induced akathisia Anxiety Borderline personality disorder Bipolar disorder, in full remission, most recent episode manic History of ectopic PCOS (polycystic ovarian syndrome) Surgical History History of gynecologic surgery Social History Smoking Status: Never smoker Smoking Status: Never smoker alcohol intake frequency: a few times a month Substance Use Type: does not use Exam Initial Vital Signs Initial Vital Signs: Vital Signs Temperature 98.1 F 03/27/24 13:06 Pulse Rate 96 H 03/27/24 13:06 Respiratory Rate 16 03/27/24 13:06 Blood Pressure 125/86 03/27/24 13:06 Pulse Oximetry 99 03/27/24 13:06 Oxygen Delivery Method Room Air 03/27/24 13:06 GENERAL: Well-appearing, well-nourished and in no acute distress. CARDIOVASCULAR: peripheral pulses in tact, cap refill <2 sec RESPIRATORY: No respiratory distress, speaks in full sentences without difficulty EXTREMITIES: Normal range of motion, no clubbing or edema. Neurovascularly intact NEUROLOGICAL: Cranial nerves II through XII grossly intact. Normal gait and speech. SKIN: Right postauricular lesion 0.5 cm x 0.5 cm fluctuation minimal erythema, dried blood noted Course Vital Signs Vital signs: Vital Signs - 8 hr 03/27/24 13:06 03/27/24 14:15 Temperature 98.1 F Pulse Rate 96 H 87 Respiratory Rate 16 18 Blood Pressure 125/86 125/73 Pulse Oximetry 99 96 Oxygen Delivery Method Room Air Room Air Medical Decision Making MDM Narrative Medical decision making narrative: Patient 43-year-old female has chronic cyst behind right ear which is likely become infected. She does have some drainage I was easily able to draining more out without needle or scalpel. No culture was taken. She overall is not febrile or septic and appears. We discussed that she still needs to go to Dermatology for ultimate biopsy pathology and possible removal Discharge Plan Departure Patient Disposition: Home Clinical Impression: Abscess Instructions: Incision and Drainage of a Skin Abscess Activity Restrictions/Additional Instructions: *You have been diagnosed with ear abscess *What to do: At this time continue warm compresses encourage drainage. You still need biopsy done by Dermatology *Continue to take medications as directed Keflex 500 mg 3 times a day for 7 days--> [facility] *Follow up with your primary care provider in 2-3 days or call [phone] *Return to ER if you should have increasing pain redness fever chills or any new, worsening or concerning symptoms Prescriptions: New cephalexin 500 mg capsule 500 mg PO BID 7 Days Qty: 14 0RF No Action divalproex 250 mg tablet extended release 24 hr 500 mg PO BEDTIME Qty: 60 5RF multivitamin Tablet 1 tab PO DAILY lamotrigine 100 mg tablet 200 mg PO DAILY Qty: 60 5RF lithium carbonate 300 mg tablet extended release 900 mg PO BEDTIME Qty: 90 3RF naratriptan 1 mg tablet See Rx Instructions PO .COMPLEX Qty: 10 5RF Rx Instructions: take 1 tablet at onset of headache; if no relief, may repeat 1 tablet after at least 4 hrs PO (DME) Disabled parking permit See Rx Instructions .ROUTE .MEDSUPPLY Qty: 1 0RF Rx Instructions: I find this patient to be medically disabled and qualified for disabled parking as indicated, and signed, on the accompanying disabled parking application for individuals. Calcium Magnesium 500 mg calcium -250 mg Tablet 1 tab PO DAILY Referrals: Jennifer Philippe DO [Primary Care Provider] - Stand Alone Forms: Patient Portal/API
[2024-03-27 14:15] VITALS: BP 125/73; PULSE 87; RESP 18; O2SAT 96
== END 2024-03-27 14:15 | disposition home or self-care (01) ==
PROVIDERS: Emergency Provider Emergency Medicine; PCP Family Medicine
DX: H60.01 Abscess of right external ear (principal)
CPT/HCPCS: 10060; 99281; 99283

== ENCOUNTER 2024-05-29 16:00 | Emergency (ER) | payer BC, MEDICARE, SELFPAY ==
[2024-05-29] VITALS (9 sets, daily range): BP systolic 124–157; BP diastolic 79–95; PULSE 74–93; RESP 16–18; TEMP 36.6; O2SAT 94–100; BMI 24.1
[2024-05-29] MEDS: PANTOPRAZOLE 40 MG VIAL 80 MG IV (17:10)
[2024-05-29 17:27] LABS: Add Manual Diff / Slide Review NO; Basophils Absolute Auto 0 /uL (0-100); Basophils Percent Auto 0.7 % (0-2); Eosinophils Absolute Auto 100 /uL (0-450); Eosinophils Percent Auto 2.3 % (2-4); Hematocrit 36.4 % (36-46); Hemoglobin 12.3 g/dL (12.0-16.0); Lymphocytes Absolute Auto 2200 /uL (1100-4500); Lymphocytes Percent Auto 37.3 % (25-40); Mean Corpuscular HGB Conc 33.9 % (30-36); Mean Corpuscular Hemoglobin 30.8 PG (26-34); Mean Corpuscular Volume 90.9 fL (80-100); Monocytes Absolute Auto 400 /uL (0-900); Monocytes Percent Auto 7.6 % (3-14); Neutrophils Absolute Auto 3000 /uL (1500-7000); Neutrophils Percent Auto 52.1 % (50-75); Platelet Count 338 X10^3/uL (150-400); Red Cell Distribution Width 12.4 % (11.6-14.8); White Blood Cell Count 5.8 X10^3/uL (4.5-11.0)
--- NOTE | 2024-05-29 17:28 | EKG_ITS ---
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
[2024-05-29 17:34] LABS: INR 0.9 (0.9-1.3); Prothrombin Time 10.5 SECONDS (9.4-12.5)
[2024-05-29 17:37] LABS: PTT Partial Thromboplastin Tim 33 SECONDS (25.1-36.5)
[2024-05-29 17:38] LABS: Alanine Aminotransferase 30 IU/L (<35); Albumin 4.7 g/dL (3.5-5.0); Albumin Globulin Ratio 1.7 (1.0-2.8); Alkaline Phosphatase 80 U/L (38-126); Aspartate Aminotransferase 30 IU/L (14-36); BUN Creatinine Ratio 17.6 (6-22); Bilirubin Total 0.4 mg/dL (0.2-1.3); Blood Urea Nitrogen 12 mg/dL (7-17); Calcium 9.9 mg/dL (8.4-10.2); Carbon Dioxide 25 mmol/L (22-32); Chloride 107 mmol/L (98-107); Estimated Glomerular Filt Rate > 60 mL/min (>60); Globulin 2.7 g/dL (1.7-4.1); Glucose 94 mg/dL (70-100); HEMOLYSIS 16 (0-50); Potassium 3.6 mmol/L (3.4-5.1); Sodium 138 mmol/L (137-145); Total Protein 7.4 g/dL (6.3-8.2)
--- NOTE | 2024-05-29 17:42 | ED.ABDPAIN ---
HPI - Abdominal Pain <Jocelyn Perez DO - Last Filed: 05/31/24 11:14> General Chief Complaint: Abdominal Pain Stated Complaint: blood in stool/abd pain Time Seen by Provider: 05/29/24 17:34 History of Present Illness HPI narrative: Patient is a 43-year-old female history of celiac disease has frequent rectal bleeding presenting today with abdominal pain and rectal bleeding. She reports that she has actually had blood in her stool ongoing for last 2 months which is a little abnormal. She reports that she has had celiac for the last few decades she is very familiar with it. She states that she will have flares when she eats gluten however she has been very cautious not to equal and she has been eating at home. Over the last 5 days or so she feels like she is having increasing bloating and she is having increasing abdominal pain and more rectal bleeding cause. She feels a little weak no dizziness lightheadedness or palpitations. She also reports that she had a hysterectomy no longer has any sort of vaginal bleeding. Related Data Home Medications Medication Instructions Recorded Confirmed calcium carb-Ca gluc 500 mg 1 tab PO DAILY 08/09/19 03/25/24 calcium-magnesium ox-Mg gluc 250 mg tablet (Calcium Magnesium) multivitamin 1 tab PO DAILY 12/05/20 03/25/24 Previous Rx's Medication Instructions Recorded naratriptan 1 mg tablet See Rx Instructions PO .COMPLEX 03/06/24 #10 tabs Disabled parking permit #1 ea 03/25/24 divalproex 250 mg tablet,extended 500 mg (2 x 250 mg) PO BEDTIME #60 05/04/24 release 24 hr tabs lamotrigine 100 mg tablet 200 mg (2 x 100 mg) PO DAILY #60 05/04/24 tabs lithium carbonate 300 mg 900 mg (3 x 300 mg) PO BEDTIME #90 05/04/24 tablet,extended release tabs Allergies Allergy/AdvReac Type Severity Reaction Status Date / Time nut - unspecified Allergy Severe Anaphylaxis Verified 03/27/24 13:13 Patient History <Jocelyn Perez DO - Last Filed: 05/31/24 11:14> Medical History Migraine 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), with abnormal movement Antipsychotic-induced akathisia Anxiety Borderline personality disorder Bipolar disorder, in full remission, most recent episode manic History of ectopic PCOS (polycystic ovarian syndrome) Surgical History History of gynecologic surgery Social History Smoking Status: Never smoker Smoking Status: Never smoker alcohol intake frequency: a few times a month Substance Use Type: does not use Exam <Jocelyn Perez DO - Last Filed: 05/31/24 11:14> Initial Vital Signs Initial Vital Signs: Vital Signs Pulse Rate 93 H 05/29/24 16:34 Pulse Oximetry 100 05/29/24 16:34 GENERAL: Alert pleasant 43-year-old female and in no acute distress. HEENT: Head atraumatic,EOMI, pupils reactive, face symmetric, moist mucous membranes CARDIOVASCULAR: Regular rate and rhythm without murmurs, rubs or gallops. RESPIRATORY: Breath sounds equal bilaterally, no wheezes rales or rhonchi. ABDOMEN: Soft, nontender. Normoactive bowel sounds all 4 quadrants. No guarding or rebound. EXTREMITIES: Normal range of motion, no clubbing or edema. Neurovascularly intact NEUROLOGICAL: Alert and oriented x4.Normal gait and speech. SKIN: Warm, dry, no laceration, no petechiae, no rashes or lesions. <Megan Washington MD - Last Filed: 05/30/24 04:15> Initial Vital Signs Initial Vital Signs: Vital Signs Pulse Rate 93 H 05/29/24 16:34 Pulse Oximetry 100 05/29/24 16:34 Course <Jocelyn Perez DO - Last Filed: 05/31/24 11:14> Orders Ordered: Discontinued Medications Ondansetron HCl (Ondansetron 4 Mg/2 Ml Inj) 4 mg IV NOW PRN PRN Reason: Nausea And Vomiting Pantoprazole Sodium (Pantoprazole 40 Mg Vial) 80 mg IV NOW ONE Stop: 05/29/24 16:43 Last Admin: 05/29/24 17:10 Dose: 80 mg Documented By: GINNY Vital Signs Vital signs: Vital Signs - 8 hr 05/29/24 16:34 05/29/24 16:38 05/29/24 17:00 Temperature 97.9 F Pulse Rate 93 H 89 86 Respiratory Rate 16 Blood Pressure 157/95 H Pulse Oximetry 100 98 99 Oxygen Delivery Method Room Air 05/29/24 17:01 05/29/24 17:01 05/29/24 18:37 Temperature Pulse Rate 82 Respiratory Rate 18 Blood Pressure 144/87 H Pulse Oximetry 100 94 Oxygen Delivery Method 05/29/24 18:38 05/29/24 18:38 05/29/24 19:00 Temperature Pulse Rate 74 83 Respiratory Rate Blood Pressure 147/79 H Pulse Oximetry 100 97 Oxygen Delivery Method <Megan Washington MD - Last Filed: 05/30/24 04:15> Orders Ordered: Discontinued Medications Ondansetron HCl (Ondansetron 4 Mg/2 Ml Inj) 4 mg IV NOW PRN PRN Reason: Nausea And Vomiting Pantoprazole Sodium (Pantoprazole 40 Mg Vial) 80 mg IV NOW ONE Stop: 05/29/24 16:43 Last Admin: 05/29/24 17:10 Dose: 80 mg Documented By: GINNY Vital Signs Vital signs: Vital Signs - 8 hr 05/29/24 16:34 05/29/24 16:38 05/29/24 17:00 Temperature 97.9 F Pulse Rate 93 H 89 86 Respiratory Rate 16 Blood Pressure 157/95 H Pulse Oximetry 100 98 99 Oxygen Delivery Method Room Air 05/29/24 17:01 05/29/24 17:01 05/29/24 18:37 Temperature Pulse Rate 82 Respiratory Rate 18 Blood Pressure 144/87 H Pulse Oximetry 100 94 Oxygen Delivery Method 05/29/24 18:38 05/29/24 18:38 05/29/24 19:00 Temperature Pulse Rate 74 83 Respiratory Rate Blood Pressure 147/79 H Pulse Oximetry 100 97 Oxygen Delivery Method MDM - Abdominal Pain <Jocelyn Perez DO - Last Filed: 05/31/24 11:14> Lab Data 05/29/24 16:40 05/29/24 16:40 Labs: Lab Results 05/29/24 Range/Units 16:40 WBC 5.8 (4.5-11.0) X10^3/uL RBC 4.00 (4.0-5.2) X10^6/uL Hgb 12.3 (12.0-16.0) g/dL Hct 36.4 (36-46) % MCV 90.9 (80-100) fL MCH 30.8 (26-34) PG MCHC 33.9 (30-36) % RDW 12.4 (11.6-14.8) % Plt Count 338 (150-400) X10^3/uL Neut % (Auto) 52.1 (50-75) % Lymph % (Auto) 37.3 (25-40) % [place] % (Auto) 7.6 (3-14) % Eos % (Auto) 2.3 (2-4) % Baso % (Auto) 0.7 (0-2) % Neut # (Auto) 3000 (2203-6571) /uL Lymph # (Auto) 2200 (7834-4056) /uL [place] # (Auto) 400 (0-900) /uL Eos # (Auto) 100 (0-450) /uL Baso # (Auto) 0 (0-100) /uL PT 10.5 (9.4-12.5) SECONDS INR 0.9 (0.9-1.3) APTT 33 (25.1-36.5) SECONDS Sodium 138 (137-145) mmol/L Potassium 3.6 (3.4-5.1) mmol/L Chloride 107 (98-107) mmol/L Carbon Dioxide 25 (22-32) mmol/L BUN 12 (7-17) mg/dL Creatinine 0.68 (0.52-1.04) mg/dL Estimated GFR > 60 (>60) mL/min BUN/Creatinine Ratio 17.6 (6-22) Glucose 94 (70-100) mg/dL Calcium 9.9 (8.4-10.2) mg/dL Total Bilirubin 0.4 (0.2-1.3) mg/dL AST 30 (14-36) IU/L ALT 30 (<35) IU/L Alkaline Phosphatase 80 (38-126) U/L Total Protein 7.4 (6.3-8.2) g/dL Albumin 4.7 (3.5-5.0) g/dL Globulin 2.7 (1.7-4.1) g/dL Albumin/Globulin Ratio 1.7 (1.0-2.8) Point of care testing: Urine Dip Bedside Urine Glucose Negative Bedside Urine Bilirubin - Negative Bedside Urine Ketone - Negative Urine Specific [place] 1.010 Bedside Urine Occult Blood - Negative Bedside Urine pH 7.0 Bedside Urine Protein - Negative Bedside Urine Urobilinogen - Negative Bedside Urine Nitrite - Negative Bedside Urine Leukocytes - Negative Esterase ECG Data Attestation: I personally reviewed and interpreted this ECG as follows: Interpretation: Normal sinus rhythm rate 82 CA interval 174 QRS 76 QTC 457 Q-wave noted in lead 3 only no ischemia MDM Narrative Medical decision making narrative: Patient 43-year-old female history of celiac disease constant rectal bleeding presenting today with abdominal pain and bloating. She is hemodynamically stable Blood work has been reviewed she has not anemic she has a hemoglobin of 12.3 and hematocrit of 36.4 she has no leukocytosis, coags are within normal limits, Sodium is 138 potassium 3.6 chloride 107 carbon dioxide 25 BUN 12 creatinine 0.68 bilirubin 0.4 AST 30 ALT 30 alk-phos 80 Patient does not want need anything for pain She overall appears well hemodynamically stable with no changes in blood work despite having 2 months of rectal bleeding CT pending Patient signed out to Dr. Washington <Megan Washington MD - Last Filed: 05/30/24 04:15> Lab Data Labs: Lab Results 05/29/24 Range/Units 16:40 WBC 5.8 (4.5-11.0) X10^3/uL RBC 4.00 (4.0-5.2) X10^6/uL Hgb 12.3 (12.0-16.0) g/dL Hct 36.4 (36-46) % MCV 90.9 (80-100) fL MCH 30.8 (26-34) PG MCHC 33.9 (30-36) % RDW 12.4 (11.6-14.8) % Plt Count 338 (150-400) X10^3/uL Neut % (Auto) 52.1 (50-75) % Lymph % (Auto) 37.3 (25-40) % [place] % (Auto) 7.6 (3-14) % Eos % (Auto) 2.3 (2-4) % Baso % (Auto) 0.7 (0-2) % Neut # (Auto) 3000 (6748-8727) /uL Lymph # (Auto) 2200 (5309-3258) /uL [place] # (Auto) 400 (0-900) /uL Eos # (Auto) 100 (0-450) /uL Baso # (Auto) 0 (0-100) /uL PT 10.5 (9.4-12.5) SECONDS INR 0.9 (0.9-1.3) APTT 33 (25.1-36.5) SECONDS Sodium 138 (137-145) mmol/L Potassium 3.6 (3.4-5.1) mmol/L Chloride 107 (98-107) mmol/L Carbon Dioxide 25 (22-32) mmol/L BUN 12 (7-17) mg/dL Creatinine 0.68 (0.52-1.04) mg/dL Estimated GFR > 60 (>60) mL/min BUN/Creatinine Ratio 17.6 (6-22) Glucose 94 (70-100) mg/dL Calcium 9.9 (8.4-10.2) mg/dL Total Bilirubin 0.4 (0.2-1.3) mg/dL AST 30 (14-36) IU/L ALT 30 (<35) IU/L Alkaline Phosphatase 80 (38-126) U/L Total Protein 7.4 (6.3-8.2) g/dL Albumin 4.7 (3.5-5.0) g/dL Globulin 2.7 (1.7-4.1) g/dL Albumin/Globulin Ratio 1.7 (1.0-2.8) Point of care testing: Urine Dip Bedside Urine Glucose Negative Bedside Urine Bilirubin - Negative Bedside Urine Ketone - Negative Urine Specific [place] 1.010 Bedside Urine Occult Blood - Negative Bedside Urine pH 7.0 Bedside Urine Protein - Negative Bedside Urine Urobilinogen - Negative Bedside Urine Nitrite - Negative Bedside Urine Leukocytes - Negative Esterase MDM Narrative Medical decision making narrative: Patient 43-year-old female history of celiac disease constant rectal bleeding presenting today with abdominal pain and bloating. She is hemodynamically stable Blood work has been reviewed she has not anemic she has a hemoglobin of 12.3 and hematocrit of 36.4 she has no leukocytosis, coags are within normal limits, Sodium is 138 potassium 3.6 chloride 107 carbon dioxide 25 BUN 12 creatinine 0.68 bilirubin 0.4 AST 30 ALT 30 alk-phos 80 Patient does not want need anything for pain She overall appears well hemodynamically stable with no changes in blood work despite having 2 months of rectal bleeding CT pending Patient signed out to Dr. Felix Washington-patient care turned over to me, independent review of labs, chart, patient performed by myself. CT imaging negative for acute findings. Patient reassessed, resting comfortably in bed. She was informed of all of her lab and imaging findings. She states that she is relieved to know that she doesn't have a perforation. She states that she has an upcoming appointment with her primary care physician and we will discuss further investigation of her condition with him at that time. Discharge Plan Departure Patient Disposition: Home Clinical Impression: Abdominal pain, Blood in stool Instructions: DI for Abdominal Pain-Adult Activity Restrictions/Additional Instructions: Your laboratory work and CT imaging today is normal. Follow up with your doctors as scheduled. Prescriptions: No Action lithium carbonate 300 mg tablet extended release 900 mg PO BEDTIME Qty: 90 5RF lamotrigine 100 mg tablet 200 mg PO DAILY Qty: 60 5RF divalproex 250 mg tablet extended release 24 hr 500 mg PO BEDTIME Qty: 60 5RF multivitamin Tablet 1 tab PO DAILY naratriptan 1 mg tablet See Rx Instructions PO .COMPLEX Qty: 10 5RF Rx Instructions: take 1 tablet at onset of headache; if no relief, may repeat 1 tablet after at least 4 hrs PO (DME) Disabled parking permit See Rx Instructions .ROUTE .MEDSUPPLY Qty: 1 0RF Rx Instructions: I find this patient to be medically disabled and qualified for disabled parking as indicated, and signed, on the accompanying disabled parking application for individuals. Calcium Magnesium 500 mg calcium -250 mg Tablet 1 tab PO DAILY Referrals: Jennifer Philippe DO [Primary Care Provider] - Stand Alone Forms: Patient Portal/API
--- NOTE | 2024-05-29 17:43 | DI.CT.S_ITS ---
PROCEDURE: CT ANGIO ABD/PEL GI BLEED INDICATIONS: Abdominal Pain TECHNIQUE: After the administration of intravenous contrast, 2.5 mm thick sections acquired from the diaphragm to the symphysis. 10 mm maximum-intensity projection (MIP) reformats were then acquired. For radiation dose reduction, the following was used: automated exposure control. COMPARISON: None. FINDINGS: Image Quality: Diagnostic. Abdominal aorta: No aortic aneurysm or evidence of acute aortic syndrome. Mesenteric arteries: Patent without hemodynamically significant stenosis. Renal arteries: Patent without hemodynamically significant stenosis. OTHER: Lower Chest: No significant findings. Liver: No solid mass. Gallbladder: No radiopaque gallstones or wall thickening. Biliary ducts: No biliary dilation. Pancreas: No ductal dilation. Spleen: Size is within normal limits. Adrenal Glands: No adrenal nodules. Kidneys and Ureters: No hydronephrosis. No solid mass. No complex renal cystic lesion which requires follow up. Stomach and Bowel: Stomach and small bowel loops are normal caliber. Normal appendix. Increased quantity of stool throughout the colon. No suspicious colon wall thickening or diverticula. Peritoneum: No abnormal intraperitoneal fluid. No free air. Ventral Wall: Tiny fat containing umbilical hernia. Abdominal Nodes: No retroperitoneal or mesenteric adenopathy by size criteria. Vessels: The abdominal aorta, IVC, and portal vein are of normal caliber. PELVIS: Pelvic Organs: Hysterectomy. Ovaries are not well seen. Bladder: Decompressed Pelvic Nodes: No enlarged lymph nodes. Miscellaneous: No inguinal hernias are seen. Bones: No aggressive osseous abnormality. IMPRESSION: No evidence of acute arterial hemorrhage or arterial stenosis. No findings of bowel ischemia. Dictated by: Mercy Sumner M.D. on 05/29/2024 at 19:25 Approved by: Mercy Sumner M.D. on 05/29/2024 at 19:31
== END 2024-05-29 20:09 | disposition home or self-care (01) ==
PROVIDERS: Emergency Provider Emergency Medicine; PCP Family Medicine
DX: R10.9 Unspecified abdominal pain (principal); K92.1 Melena; K90.0 Celiac disease
CPT/HCPCS: 36415; 74174; 80053; 81003; 85025; 85610; 85730; 93005; 96374; 99284; J2470; Q9967

== ENCOUNTER → 2024-11-09 15:23 | Outpatient (CLI) | payer BC, OTHER, SELFPAY ==
[2024-11-09 16:40] LABS: Add Manual Diff / Slide Review NO; Basophils Absolute Auto 0 /uL (0-100); Basophils Percent Auto 0.3 % (0-2); Eosinophils Absolute Auto 0 /uL (0-450); Eosinophils Percent Auto 0.7 % (2-4); Hematocrit 38.2 % (36-46); Lymphocytes Absolute Auto 1800 /uL (1100-4500); Lymphocytes Percent Auto 32.9 % (25-40); Mean Corpuscular HGB Conc 34.1 % (30-36); Mean Corpuscular Hemoglobin 29.9 PG (26-34); Mean Corpuscular Volume 87.5 fL (80-100); Monocytes Absolute Auto 400 /uL (0-900); Monocytes Percent Auto 7.9 % (3-14); Neutrophils Absolute Auto 3200 /uL (1500-7000); Neutrophils Percent Auto 58.2 % (50-75); Platelet Count 295 X10^3/uL (150-400); Red Blood Cell Count 4.36 X10^6/uL (4.0-5.2); Red Cell Distribution Width 12.2 % (11.6-14.8); White Blood Cell Count 5.6 X10^3/uL (4.5-11.0)
[2024-11-09 16:51] LABS: Hemoglobin A1C% w Est Avg Glu 5.1 % (4.0-6.0)
[2024-11-09 17:10] LABS: Alanine Aminotransferase 44 IU/L (<35); Albumin 4.7 g/dL (3.5-5.0); Alkaline Phosphatase 93 U/L (38-126); Aspartate Aminotransferase 36 IU/L (14-36); BUN Creatinine Ratio 20.3 (6-22); Bilirubin Total 0.3 mg/dL (0.2-1.3); Blood Urea Nitrogen 13 mg/dL (7-17); Calcium 9.8 mg/dL (8.4-10.2); Carbon Dioxide 29 mmol/L (22-32); Chloride 103 mmol/L (98-107); Estimated Glomerular Filt Rate > 60 mL/min (>60); Glucose 90 mg/dL (70-100); HEMOLYSIS < 15 (0-50); Potassium 3.7 mmol/L (3.4-5.1); Sodium 138 mmol/L (137-145)
[2024-11-09 17:15] LABS: Albumin Globulin Ratio 2.2 (1.0-2.8); Globulin 2.1 g/dL (1.7-4.1); Total Protein 6.8 g/dL (6.3-8.2)
[2024-11-12 13:11] LABS: Lamotrigine Lamictal 4.6 ug/mL (2.0-20.0)
== END ==
PROVIDERS: PCP Family Medicine; Referring Provider Psychiatry & Neurology Psychiatry; Visit Provider Psychiatry & Neurology Psychiatry
DX: Z79.899 Other long term (current) drug therapy (principal)
CPT/HCPCS: 36415; 80053; 80175; 83036; 85025

== ENCOUNTER → 2025-01-11 16:13 | Outpatient (CLI) | payer BC, MEDICARE, SELFPAY ==
--- NOTE | 2025-01-11 16:17 | DI.MRI.S_ITS ---
PROCEDURE: MR SHOULDER RT WO CON INDICATIONS: Pain right shoulder TECHNIQUE: Noncontrast oblique coronal T2 fast spin echo with fat saturation, oblique sagittal T1 spin echo and T2 fast spin echo with fat saturation, axial T1 spin echo and T2 fast spin echo with fat saturation through the shoulder. COMPARISON: [facility], MR, MR SHOULDER RIGHT WITHOUT CONTRAST, 06/19/2023, 11:20. [facility], CR, XR SHOULDER 2+ VIEWS RIGHT, 12/15/2024, 13:21. FINDINGS: Image quality: Excellent. Rotator cuff: The supraspinatus, and infraspinatus are unremarkable. The teres minor is unremarkable. The subscapularis is unremarkable. No muscle edema or fatty atrophy. Bones and bursae: Mild degenerative changes of the acromioclavicular joint. Type 2 acromion. No os acromiale. Mild subacromial/subdeltoid bursitis. Mild subchondral cystic changes in the posterior greater tuberosity, reactive. No acute fracture. No focal chondral defect of the glenohumeral articulation. Capsule and soft tissues: Superior labral tear, extending anteriorly to the anterior labrum. No paralabral cyst. The extra-articular biceps tendon is diminutive, but is intact. The intra-articular biceps tendon is unremarkable. No significant glenohumeral effusion. No intra-articular body. Fibrosis of the rotator cuff interval, raising concern for adhesive capsulitis. IMPRESSION: 1. Mild degenerative changes of the acromioclavicular joint. 2. No rotator cuff tendon tear. Previously seen tear is no longer visualized. 3. Labral tear. No paralabral cyst. 4. Finding suggestive of adhesive capsulitis. Dictated by: Alycia Farooq M.D. on 01/12/2025 at 10:07 Approved by: Alycia Farooq M.D. on 01/12/2025 at 10:16
== END ==
PROVIDERS: PCP Family Medicine; Referring Provider Orthopaedic Surgery; Visit Provider Orthopaedic Surgery
DX: S43.491A Other sprain of right shoulder joint, initial encounter (principal); M25.511 Pain in right shoulder
CPT/HCPCS: 73221